=== PATIENT | female | born 1945 | race African-American/Black ===

== ENCOUNTER 2017-01-28 18:46 | Inpatient (IN) | payer OTHER ==
[2017-01-28 19:16] VITALS: BMI 25.0
[2017-01-28 19:38] LABS: BASOPHIL 0.6 % (0-2.0); EOSINOPHIL 1.2 % (0-4.5); MCH 29.5 pg (25.7-33.7); MEAN CELL VOLUME 89.4 fl (80-96); MEAN PLT VOLUME 7.2 fl (7.5-11.1); NEUTROPHILS 66.6 % (42.8-82.8); PLATELET COUNT 350 K/MM3 (134-434); RDW 13.5 % (11.6-15.6); WHITE BLOOD COUNT 7.3 K/mm3 (4.0-10.0)
[2017-01-28 19:59] LABS: ALBUMIN 3.4 g/dl (3.4-5.0); ANION GAP 10 (8-16); BILIRUBIN,TOTAL 0.3 mg/dL (0.2-1.0); CALCIUM 9.1 mg/dL (8.5-10.1); CO2 25 mmol/L (21-32); CREATININE 1.6 mg/dL (0.55-1.02); GLUCOSE,RANDOM 87 mg/dL (74-106); SGOT/AST 14 U/L (15-37); SGPT/ALT 20 U/L (12-78); TOT PROT 6.4 g/dl (6.4-8.2)
[2017-01-28 20:01] LABS: ALK PHOS 69 U/L (45-117); TROPONIN I 0.44 ng/ml (0.00-0.05)
[2017-01-28] MEDS ORDERED: HEPARIN NA (PORCINE) 5,000 UNITS/ML 1ML VIAL IVPUSH PRN ×2 (20:48)
[2017-01-28] MEDS ORDERED: HEPARIN NA (PORCINE) 5,000 UNITS/ML 1ML VIAL IVPUSH ONE (20:50)
[2017-01-28] MEDS ORDERED: CLOPIDOGREL BISULFATE 300 MG TABLET PO ONE (20:51)
[2017-01-28] MEDS ORDERED: ASPIRIN 81 MG CHEWABLE TABLETS PO ONE (20:51)
[2017-01-28] MEDS ORDERED: HEPARIN NA (PORCINE) 5,000 UNITS/ML 1ML VIAL ONE (20:54)
[2017-01-28] MEDS ORDERED: CLOPIDOGREL BISULFATE 300 MG TABLET ONE (20:54)
[2017-01-28] MEDS ORDERED: HEPARIN INFUSION - 500 ML IVPB ONE (20:54)
[2017-01-28] MEDS ORDERED: ASPIRIN 81 MG CHEWABLE TABLETS ONE (20:54)
[2017-01-28] MEDS: HEPARIN INFUSION - 500 ML IVPB SCH (20:55)
[2017-01-28 21:26] LABS: INR 1.18 (0.82-1.09)
--- NOTE | 2017-01-28 23:29 | PDOC ---
History of Present Illness - General Chief Complaint: Lightheaded Stated Complaint: CHEST TIGHTNESS/DIZZINESS Time Seen by Provider: 01/28/17 19:38 History Source: Patient Exam Limitations: No Limitations - History of Present Illness Initial Comments: 01/28/17 23:10 Patient is a 71 year old female with h/o HLD, htn, DM type II, CAD, dementia, Vit B12, SOB, major depressive disorder, CAGB, RBKA, who lives in [facility] for c/o chest pain. Patient is a poor historian due to dementia, but c/o chest pain, which she thinks she has had since last night. States the pain is like a intermittent pressure 8/10 which makes her sob when the pain come. States she had some dizziness with the symptoms states " it does not let me hold my head up". Today she used her MDI and was feeling better. She was in the hospital about 2 weeks ago. She thinks is was [place] but she is not sure. Denies any bleeding GI, brain or ENT. Per EMS got a call for unconscious but on arrival patient was conscious with a finger stick of 60 and was given dextrose with improvement in metal status. PMD: Dr. Kaylyn Peña PMHX: as above ALL: NKDA GENERAL/CONSTITUTIONAL: [No fever or chills. No weakness. No weight change.] HEAD, EYES, EARS, NOSE AND THROAT: [No change in vision. No ear pain or discharge. No sore throat.] CARDIOVASCULAR: (+) chest pain (+) shortness of breath.] RESPIRATORY: [No cough, wheezing, or hemoptysis.] GASTROINTESTINAL: [No nausea, vomiting, diarrhea or constipation. No rectal bleeding.] GENITOURINARY: [No dysuria, frequency, or change in urination.] MUSCULOSKELETAL: [No joint or muscle swelling or pain. No neck or back pain.] SKIN AND BREASTS: [No rash or easy bruising.] NEUROLOGIC: [No headache, vertigo, loss of consciousness, or loss of sensation, (+) dementia] PSYCHIATRIC: (+) depression or anxiety.] ENDOCRINE: [No increased thirst. No abnormal weight change.] HEMATOLOGIC/LYMPHATIC: [No anemia, easy bleeding, or history of blood clots.] ALLERGIC/IMMUNOLOGIC: [No hives or skin allergy. No latex allergy.] GENERAL: [The patient is awake, alert, and fully oriented, in no acute distress. ] HEAD: [Normal with no signs of trauma.] EYES: [right Pupil round and reactive to light, extraocular movements intact, sclera anicteric, conjunctiva clear, opacification left eye.] ENT: [Ears normal, nares patent, oropharynx clear without exudates. Moist mucous membranes.] NECK: [Normal range of motion, supple without lymphadenopathy, JVD, or masses.] LUNGS: [Breath sounds equal, clear to auscultation bilaterally. No wheezes, and no crackles.] HEART: [Regular rate and rhythm, normal S1 and S2 without murmur, rub, nontender chest wall .] ABDOMEN: [Soft, nontender, normoactive bowel sounds. No guarding, no rebound. No masses.] RECTAL: good tone, small hemorroid, brown stool EXTREMITIES: decreased ROM, RBKA, no edema to left leg. No clubbing or cyanosis. No cords, erythema, or tenderness.] NEUROLOGICAL: [Cranial nerves II through XII grossly intact. blind left eye, Normal speech, gait not tested] PSYCH: [Normal mood, normal affect.] SKIN: [Warm, Dry, normal turgor, no rashes or lesions noted.] Past History - Past Medical History Allergies/Adverse Reactions: Allergies Allergy/AdvReac Type Severity Reaction Status Date / Time No Known Allergies Allergy Verified 01/28/17 19:09 Home Medications: Ambulatory Orders Albuterol Sulfate Inhaler - [Ventolin Hfa Inhaler -] 2 inh PO Q4H 01/28/17 Aspirin [ASA -] 81 mg PO DAILY 01/28/17 Atorvastatin Ca [Lipitor] 20 mg PO HS 01/28/17 Clopidogrel Bisulfate [Plavix -] 75 mg PO DAILY 01/28/17 Digoxin [Lanoxin -] 0.25 mg PO DAILY 01/28/17 Donepezil HCl [Aricept -] 10 mg PO HS 01/28/17 Gabapentin [Neurontin -] 300 mg PO Q8H 01/28/17 Glipizide [Glipizide ER] 10 mg PO DAILY 01/28/17 Insulin Lispro [Humalog] 0 unit SQ TID 01/28/17 Metformin HCl [Metformin HCl ER] 1,000 mg PO DAILY 01/28/17 Metoprolol Tartrate [Lopressor -] 12.5 mg PO DAILY 01/28/17 Pantoprazole Sodium [Protonix] 20 mg PO DAILY 01/28/17 Tiotropium [place] [Spiriva] 1 inh PO DAILY 01/28/17 Trazodone HCl [Desyrel -] 150 mg PO HS 01/28/17 Zolpidem Tartrate [Ambien] 5 mg PO HS 01/28/17 Cardiac Disorders: Yes (cad) COPD: Yes Dementia: Yes Diabetes: Yes (iddm) Disorders: Yes (gerd) Hypercholesterolemia: Yes Psychiatric Problems: Yes (anxeity) - Surgical History Cardiac Surgery: Yes (cabg) - Psycho/Social/Smoking Cessation Hx Anxiety: No Suicidal Ideation: No Smoking History: Never smoked Have you smoked in the past 12 months: No Information on smoking cessation initiated: No Hx Alcohol Use: No Drug/Substance Use Hx: No Substance Use Type: None *Physical Exam - Vital Signs Last Vital Signs Temp Pulse Resp BP Pulse Ox 98.0 F 78 18 144/77 100 01/28/17 20:25 01/28/17 20:25 01/28/17 20:25 01/28/17 20:25 01/28/17 20:25 ED Treatment Course - LABORATORY CBC & Chemistry Diagram: 01/28/17 19:28 01/28/17 19:28 - ADDITIONAL ORDERS Additional order review: Laboratory Results 01/28/17 01/28/17 01/28/17 21:20 19:28 19:28 INR 1.18 H Sodium 140 Potassium 4.3 Chloride 105 Carbon Dioxide 25 Anion Gap 10 BUN 20 H Creatinine 1.6 H Creat Clearance w eGFR 31.87 Random Glucose 87 Calcium 9.1 Total Bilirubin 0.3 AST 14 L ALT 20 Alkaline Phosphatase 69 Creatine Kinase 96 Troponin I 0.44 H Total Protein 6.4 Albumin 3.4 Stool Occult Blood Negative 01/28/17 19:28 RBC 2.85 L MCV 89.4 MCHC 33.0 RDW 13.5 MPV 7.2 L Neutrophils % 66.6 Lymphocytes % 23.8 Monocytes % 7.8 Eosinophils % 1.2 Basophils % 0.6 - RADIOLOGY Radiology Studies Ordered: Category Date Time Status CHEST X-RAY PORTABLE* [RAD] Stat Radiology 01/28/17 20:40 Taken - Medications Given in the ED: ED Medications Discontinued Medications Generic Name Dose Route Start Last Admin Trade Name Evangelista PRN Reason Stop Dose Admin Aspirin 162 mg 01/28/17 20:51 01/28/17 20:54 Asa - PO 01/28/17 20:52 162 mg ONCE ONE Administration Clopidogrel Bisulfate 300 mg 01/28/17 20:51 01/28/17 20:54 Plavix - PO 01/28/17 20:52 300 mg ONCE ONE Administration Heparin Sodium (Porcine) 5,000 unit 01/28/17 20:50 01/28/17 20:55 Heparin - IVPUSH 01/28/17 20:51 5,000 unit ONCE ONE Administration Medical Decision Making - Medical Decision Making 01/28/17 23:29 Patient is a 71 year old female with h/o HLD, htn, DM type II, CAD, dementia, Vit B12, SOB, major depressive disorder, CAGB, RBKA, who lives in [facility] for c/o chest pain. Patient has not been in this facility prior will do work up r/o acs labs, cxr, Patient found to be a bs of 60 by ems given dextrose. labs reviewed noted to have elevated trop will admit #1 EKG SR rate 55, LAD, mild ST elevation V1-V3, T wave inversion V5, V6 #2 repeat EKG SR rate 49, LAD, mild ST elevation V1-V3, T wave inversion V5, V6n unchanged from prior, cxr sternotomy wires and clips, no acute infiltrate Patient given Plavix, asa and started on Heparin D/W Dr. Rodriguez and will admit *DC/Admit/Observation/Transfer Diagnosis at time of Disposition: NSTEMI (non-ST elevated myocardial infarction) - Discharge Dispostion Admit: Yes Decision to Admit order Date/Time: Decision to Admit Order Category Date Time Status Decision to Admit to Hospital Routine Admission 01/28/17 23:37 Active - Referrals Referrals: Kaylyn Peña MD [Primary Care Provider] -
--- NOTE | 2017-01-29 00:15 | HP ---
CHIEF COMPLAINT: chest pain/ dizziness. PCP:Dr. Kaylyn Peña HISTORY OF PRESENT ILLNESS: Patient is a 71 year AA old female with h/O HLD, hTN, DM type II, CAD, dementia , Vit B12 deficiency, major depressive disorder, S/P CAGB, RBKA(right below knee amputation), lives in [facility] ,who presented to the Ed due to fainting and mid sternal chest pain, 7/10 radiating to her left shoulder, the pain is associated with sweating, palpitation,SOB,and lightheadedness for the last 2 weeks. She denies any cough, she used 2 pillows to sleep, and she becomes short of breath after walking 2 blocks, she cannot climb stairs due to RBKA amputation.She denies any headache, blurry vision, N/V/D but she has been constipated for the last 3 days.She also reports urinary urgency and frequency but she denies any burning sensation. she was in [facility] last week but she is not sure. her blood glucose when she got to ED was 60 and was given dextrose. patient is poor historian due to dementia. ER course was notable for: (1)1 EKG SR rate 55, LAD, mild ST elevation V1-V3, T wave inversion V5, V6 (2)Trop were elevated 0.44 (3)Patient given Plavix, asa and started on Heparin Recent Travel:NO PAST MEDICAL HISTORY: HLD, hTN, DM type II, CAD, dementia, Vit B12 deficiency, major depressive disorder, CAGB, RBKA. PAST SURGICAL HISTORY: CAGB twice in 2003 and 2008 per patient , RBKA after a trauma. Social History: Smoking:None Alcohol:None Drugs: None Family History:Significant for HTN, DM and heart diseases. Allergies No Known Allergies Allergy (Verified 01/28/17 19:09) HOME MEDICATIONS: Home Medications Medication Instructions Recorded Albuterol Sulfate Inhaler - 2 inh PO Q4H 01/28/17 [Ventolin Hfa Inhaler -] Aspirin [ASA -] 81 mg PO DAILY 01/28/17 Atorvastatin Ca [Lipitor] 20 mg PO HS 01/28/17 Clopidogrel Bisulfate [Plavix -] 75 mg PO DAILY 01/28/17 Digoxin [Lanoxin -] 0.25 mg PO DAILY 01/28/17 Donepezil HCl [Aricept -] 10 mg PO HS 01/28/17 Gabapentin [Neurontin -] 300 mg PO Q8H 01/28/17 Glipizide [Glipizide ER] 10 mg PO DAILY 01/28/17 Insulin Lispro [Humalog] 0 unit SQ TID 01/28/17 Metformin HCl [Metformin HCl ER] 1,000 mg PO DAILY 01/28/17 Metoprolol Tartrate [Lopressor -] 12.5 mg PO DAILY 01/28/17 Pantoprazole Sodium [Protonix] 20 mg PO DAILY 01/28/17 Tiotropium [place] [Spiriva] 1 inh PO DAILY 01/28/17 Trazodone HCl [Desyrel -] 150 mg PO HS 01/28/17 Zolpidem Tartrate [Ambien] 5 mg PO HS 01/28/17 REVIEW OF SYSTEMS CONSTITUTIONAL: No fever, chills, +diaphoresis, laying down sleepy in her bed. HEENT: Absent: no rhinorrhea, nasal congestion, throat pain, throat swelling, difficulty swallowing, mouth swelling, ear pain, eye pain, visual changes CARDIOVASCULAR: +chest pain 8/10,+ Fainting, +palpitations, , lightheadedness,NO peripheral edema RESPIRATORY: NO cough,+ shortness of breath, +dyspnea with exertion, NO orthopnea, wheezing, stridor or hemoptysis GASTROINTESTINAL: NO abdominal pain, abdominal distension, nausea, vomiting, diarrhea, + constipation, NO melenaor hematochezia. GENITOURINARY: NO dysuria, frequency, urgency, hesitancy, hematuria, flank pain, genital pain MUSCULOSKELETAL: NO myalgia, arthralgia, joint swelling, back pain, neck pain SKIN: Absent: rash, itching, pallor HEMATOLOGIC/IMMUNOLOGIC: Absent: easy bleeding, easy bruising, lymphadenopathy, frequent infections ENDOCRINE: Absent: unexplained weight gain, unexplained weight loss, heat intolerance, cold intolerance NEUROLOGIC: NO headache, focal weakness or paresthesias, +dizziness, RBKA , NO seizure, Confused Oriented x2, NO bladder or bowel incontinence PSYCHIATRIC: + depression, NO suicidal or homicidal ideation, NO hallucinations. PHYSICAL EXAMINATION Vital Signs - 24 hr 01/28/17 01/28/17 01/28/17 19:09 19:10 20:25 Temperature 99.1 F 98.0 F Pulse Rate 57 L Pulse Rate [ 78 Apical] Respiratory 18 18 Rate Blood Pressure 152/71 Blood Pressure 144/77 [Right Arm] O2 Sat by Pulse 96 100 100 Oximetry (%) GENERAL: Sleepy, oriented x2, in no acute distress. HEAD: Normal with no signs of trauma. EYES: Pupils equal, round and reactive to light, extraocular movements intact, sclera anicteric, conjunctiva clear. No lid lag. EARS, NOSE, THROAT: Ears normal, nares patent, oropharynx clear without exudates. Moist mucous membranes. NECK: Normal range of motion, supple without lymphadenopathy, JVD, or masses. LUNGS: Breath sounds equal, clear to auscultation bilaterally. No wheezes, and no crackles. No accessory muscle use. HEART: Regular rate and rhythm, normal S1 and S2 without murmur, rub or gallop. ABDOMEN: Soft, nontender, not distended, normoactive bowel sounds, no guarding, no rebound, no masses. No hepatomegaly or splenomegaly. MUSCULOSKELETAL: Normal range of motion at all joints with RBKA. No bony deformities or tenderness. No CVA tenderness. UPPER EXTREMITIES: 2+ pulses, warm, well-perfused. No cyanosis. No clubbing. No peripheral edema. LOWER EXTREMITIES: 2+ pulses, warm, well-perfused. No calf tenderness. No peripheral edema. NEUROLOGICAL: Cranial nerves II-XII intact. Normal speech. PSYCHIATRIC: Cooperative. poor eye contact. depressed mood and affect. SKIN: Warm, dry, normal turgor, no rashes or lesions noted, normal capillary refill. CBC, BMP 01/28/17 19:28 01/28/17 19:28 Hepatic Panel Total Bilirubin 0.3 mg/dL (0.2-1.0) 01/28/17 19:28 AST 14 U/L (15-37) L 01/28/17 19:28 ALT 20 U/L (12-78) 01/28/17 19:28 Alkaline Phosphatase 69 U/L (45-117) 01/28/17 19:28 Albumin 3.4 g/dl (3.4-5.0) 01/28/17 19:28 Troponin, BNP 01/28/17 19:28 Troponin I 0.44 H ASSESSMENT/PLAN: Patient is a 71 year AA old female with h/O HLD, hTN, DM type II, CAD, dementia , Vit B12 deficiency, major depressive disorder,S/p CAGB, RBKA(right below knee amputation), who lives in [facility] ,who presented to the Ed due to fainting and med sternal chest pain, 7/10 radiating to her left shoulder. patient was found to have NSTEMI wit heart score of 6 and antonella score of 4. NSTEMI, S/P CAG * Heart score of 6 * ANTONELLA score of 4 * Troponin I= 0.44. * Trend troponin Q6H with EKG * EKG shows T wave abnormalities * O2, 2 L NC * Heprin drip initiated * ASA loading dose followed with 81 mg daily * clopidogrel 300 mg was given in ED, will continue 75 mg daily * Morphine IV 1 mg for pain * Atorvastatin 80 mg in ED, will continue 80 mg daily. * PT/Aptt * Type and screen * will repeat CBC, BMP in the morning. * Cardiology consultation. * Cardiac ECHO. * Cardiac monitoring * Vitals Q4H * NPO Bradycardia : most likely 2/2 medication * cardiac monitoring. * Vitals Q 4 H * Hold BB if HR < 60 or symptomatic. * TSH orderd YUN on possible CKD * BUN/Cr 20/1.6 * repeat CMP * hold nephrotoxic meds * had some congestion on CXR , will hold on fluids for now. * F/U with [facility] to get her base line. * UA was placed Possible Systolic CHF * Cardiac ECHO was ordered * continue home meds( Digoxine 0.25 mg po daily, Lopressor 12.5 mg PO daily( will hold for HR below 60) * cardiac monitoring Normocytic anemia likely 2/2 chronic disease * H/H: 8.4/25.5 , MCV:89.4 * Iron studies was ordered.B12, Folic acid. * IDDMII/hypoglycemia * Finger stick was 60 on admission * Hold oral agents * BGM * ISS * A1C ordered * Hypoglycemia resolved HTN * Continue home medication ( Lctulguez66.5 mg PO daily) HLD * Continue Atorvastatin 80mg daily * Lipid panel was ordered COPD * Continue home medication Tudorza * Continue 02 2L NC * CXR show some congestion Major Depressive Disorder/Dementia * Continue Home medication aricept 10 mg PO HS * Continue home medication Trazodone 150 mg PO HS Prophylaxis * Continue Heparin drip for DVT (high risk) Disposition * Full code * Admit to telemetry. * Cardiac consult placed Visit type - Emergency Visit Emergency Visit: Yes ED Registration Date: 01/28/17 Care time: The patient presented to the Emergency Department on the above date and was hospitalized for further evaluation of their emergent condition. - New Patient This patient is new to me today: Yes Date on this admission: 01/30/17 - Critical Care Critical Care patient: No
--- NOTE | 2017-01-29 00:23 | PN ---
Teaching Attending Note Name of Resident: Isaura Velez ATTENDING PHYSICIAN STATEMENT I saw and evaluated the patient. I reviewed the resident's note and discussed the case with the resident. I agree with the resident's findings and plan as documented. SUBJECTIVE: 71 yo F with pmhx of HTN, HLD, DM IIm CAD S/P CABG, Dementia, b12 defeciency, MDD who is from [facility], who presents with chest pain. Notes chest pain since last night with associated sob due to pain. Pain level 8/ 10 in severity. As per ED noted when EMS called pt. was unconciouss?, but was concious on arrival with FS of 60 and Dextrose was administered. Pt. states she currently does not have chest pain, or pressure. OBJECTIVE: Physical: VS: Vital Signs Period Temp Pulse Resp BP Sys/Hobson Pulse Ox Last 24 Hr 98.0 F-99.1 F 57-78 18-18 144-152/71-77 96-100 GEN: NAD, able to speak full sentences HEENT: NCAT, PERRL CARD: RRR S1, S2 RESP: Decreased Breath sounds at bases ABD: BS X4, NTD to palpation EXT: R. BKA, LLE- Trace pitting edema CBCD WBC 7.3 K/mm3 (4.0-10.0) 01/28/17 19:28 RBC 2.85 M/mm3 (3.60-5.2) L 01/28/17 19:28 Hgb 8.4 GM/dL (10.7-15.3) L 01/28/17 19:28 Hct 25.5 % (32.4-45.2) L 01/28/17 19:28 MCV 89.4 fl (80-96) 01/28/17 19:28 MCHC 33.0 g/dl (32.0-36.0) 01/28/17 19:28 RDW 13.5 % (11.6-15.6) 01/28/17 19:28 Plt Count 350 K/MM3 (134-434) 01/28/17 19:28 MPV 7.2 fl (7.5-11.1) L 01/28/17 19:28 CMP Sodium 140 mmol/L (136-145) 01/28/17 19:28 Potassium 4.3 mmol/L (3.5-5.1) 01/28/17 19:28 Chloride 105 mmol/L (98-107) 01/28/17 19:28 Carbon Dioxide 25 mmol/L (21-32) 01/28/17 19:28 Anion Gap 10 (8-16) 01/28/17 19:28 BUN 20 mg/dL (7-18) H 01/28/17 19:28 Creatinine 1.6 mg/dL (0.55-1.02) H 01/28/17 19:28 Creat Clearance w eGFR 31.87 (>60) 01/28/17 19:28 Random Glucose 87 mg/dL (74-106) 01/28/17 19:28 Calcium 9.1 mg/dL (8.5-10.1) 01/28/17 19:28 Total Bilirubin 0.3 mg/dL (0.2-1.0) 01/28/17 19:28 AST 14 U/L (15-37) L 01/28/17 19:28 ALT 20 U/L (12-78) 01/28/17 19:28 Alkaline Phosphatase 69 U/L (45-117) 01/28/17 19:28 Total Protein 6.4 g/dl (6.4-8.2) 01/28/17 19:28 Albumin 3.4 g/dl (3.4-5.0) 01/28/17 19:28 CARDIAC ENZYMES Creatine Kinase 96 IU/L (26-192) 01/28/17 19:28 Troponin I 0.44 ng/ml (0.00-0.05) H 01/28/17 19:28 CXR- ? mild congestion EKG: NSR, TWI lateral leads ASSESSMENT AND PLAN: 71 yo F with pmhx of HLD, HTN, DM II, CAD s/p CABG, Dementia, b12 defeciency, MDD, Right BKA who presents with chest pain found to have a NSTEMI 1.) NSTEMI - Hep gtt. plavix, asa, 02 NC, Morphine - BB (?CHF, Stanley)- would hold - Heart 6 - NPO - EKG/Troponin Trend - Echo Complete - Cardiology consult - Lipid/A1c 2.) Shortness of breath/ acute chf? (unknown hx of) - Lasix - Echo complete 3.) CAD S/P CABG - C/W home meds 4.) DM II/Hypoglycemia - Hold Glipizide - Hold PO meds - Hypoglycemia resolved - FS - RAISS 5.) HTN - C/W home meds 6.) Normocytic Anemia - Chk Fe studies. B12, folate 7.) Brenden?/CKD - Avoid Nephrotoxic drugs - UA, U lytes 8.) Dvt Ppx - Mod risk- On Hep. gtt Rest as per resident note Place in Med- Tele
--- NOTE | 2017-01-29 00:29 | HP ---
HISTORY OF PRESENT ILLNESS: Unable to obtain full history from patient due to medical condition of dementia. Most information obtained from records and ED staff. Patient is a 68 year old female with a PMHx of HTN, HLD, IDDMII, CAD s/p CABG, COPD, Major depressive disorder, dementia who was BIBA from [facility] for complains of left sided chest pain associated with shortness of breath and dizziness. When EMS was called by the assisted living they were told patient was unconscious, however, upon arrival patient was found to have a finger stick of 60 and dextrose was given with improvement of mental status. Otherwise, patient denies nausea, vomiting, abdominal pain, dysuria. HOME MEDICATIONS: Home Medications Medication Instructions Recorded Albuterol Sulfate Inhaler - 2 inh PO Q4H 01/28/17 [Ventolin Hfa Inhaler -] Aspirin [ASA -] 81 mg PO DAILY 01/28/17 Atorvastatin Ca [Lipitor] 20 mg PO HS 01/28/17 Clopidogrel Bisulfate [Plavix -] 75 mg PO DAILY 01/28/17 Digoxin [Lanoxin -] 0.25 mg PO DAILY 01/28/17 Donepezil HCl [Aricept -] 10 mg PO HS 01/28/17 Gabapentin [Neurontin -] 300 mg PO Q8H 01/28/17 Glipizide [Glipizide ER] 10 mg PO DAILY 01/28/17 Insulin Lispro [Humalog] 0 unit SQ TID 01/28/17 Metformin HCl [Metformin HCl ER] 1,000 mg PO DAILY 01/28/17 Metoprolol Tartrate [Lopressor -] 12.5 mg PO DAILY 01/28/17 Pantoprazole Sodium [Protonix] 20 mg PO DAILY 01/28/17 Tiotropium [place] [Spiriva] 1 inh PO DAILY 01/28/17 Trazodone HCl [Desyrel -] 150 mg PO HS 01/28/17 Zolpidem Tartrate [Ambien] 5 mg PO HS 01/28/17 Vital Signs - 24 hr 01/28/17 01/28/17 01/28/17 19:09 19:10 20:25 Temperature 99.1 F 98.0 F Pulse Rate 57 L Pulse Rate [ 78 Apical] Respiratory 18 18 Rate Blood Pressure 152/71 Blood Pressure 144/77 [Right Arm] O2 Sat by Pulse 96 100 100 Oximetry (%) PHYSICAL EXAMINATION GENERAL: Awake, alert, able to speak in full sentences and in no acute distress EYES: Sclera anicteric, conjunctiva clear. EARS, NOSE, THROAT: Oropharynx clear without exudates. Moist mucous membranes. NECK: Normal range of motion, supple without lymphadenopathy, JVD, or masses. LUNGS: Decreased breath sounds with no wheezes, and no crackles. No accessory muscle use. HEART: Regular rate and rhythm, normal S1 and S2 without murmur, rub or gallop. ABDOMEN: Soft, nontender, not distended, normoactive bowel sounds, no guarding, no rebound, no masses. LOWER EXTREMITIES: Trace pitting edema in left lower extremity. Below the knee amputation of right lower extremity Abnormal Lab Results 01/28/17 01/28/17 01/28/17 19:28 19:28 19:28 RBC 2.85 L Hgb 8.4 L Hct 25.5 L MPV 7.2 L INR 1.18 H BUN 20 H Creatinine 1.6 H AST 14 L Troponin I 0.44 H ASSESSMENT/PLAN: Patient is a 71 year old female with a PMHx of HTN, HLD, IDDMII, CAD s/p CABG, CHF, COPD, Major depressive disorder, dementia who was BIBA from [facility] living for complaints of chest pain associated with shortness of breath that progressively worsened in the last couple of days. Patient was found to have a slightly elevated troponin and abnormal EKG. Patient admitted to telemetry for further monitoring and management. NSTEMI -HEART SCORE: 6 -ANTONELLA SCORE: 4 -Troponin elevated t 0.44. Repeat pending -T-wave abnormalities on EKG. No baseline EKG. -Trend Troponins Q6H with EKG -Heparin drip initiated -ASA loading dose given. Will continue ASA 81mg daily -Plavix 300mg given in ED. Will continue 75mg daily -Atorvastatin 80mg given in ED. Will continue 80mg daily -Continue Lopressor home dosage 12.5mg daily but hold if heart rate <60 and SBP <100 -Morphine 1mg IVP for pain -Type and screen, coagulations -ECHO, Lipid profile, A1C ordered -Cardiology consult placed -Cardiac monitoring Bradycardia- Unknown baseline -Possibly due to medications -Hold Lopressor if HR <60 -TSH ordered -Cardiac monitoring -Vitals Q4H YUN on Possible CKD -Unknown baseline -Will hold nephrotoxic medications -Chest X-ray shows some congestion, will hold off on fluids -Day medical team to follow up on patients baseline labs -Continue to monitor BMP daily Possible Systolic CHF? -Chest X-ray revealed mild congestion -Continue home medication Digoxin lopressor -ECHO ordered Normocytic Anemia -Hgb 8.4, Hct 25 -Iron studies ordered IDDMII -Hold oral agents -BGM -ISS -A1C ordered HTN -Continue home medication Lopressor HLD -Continue Atorvastatin 80mg daily -Lipid panel ordered COPD -Continue home medication Tudorza -Continue 02 2L NC Major Depressive Disorder/Dementia -Continue Home medication Aricept -Continue home medication Trazodone Prophylaxis -Continue Heparin drip for DVT Disposition -Full code -Admit to telemetry. Cardiac consult placed Case discussed with medical team and attending full H&P to follow Visit type - Emergency Visit Emergency Visit: Yes ED Registration Date: 01/28/17 Care time: The patient presented to the Emergency Department on the above date and was hospitalized for further evaluation of their emergent condition. - New Patient This patient is new to me today: Yes Date on this admission: 01/29/17 - Critical Care Critical Care patient: Yes Total Critical Care Time (in minutes): 45 Critical Care Statement: The care of this patient involved high complexity decision making to prevent further life threatening deterioration of the patient 's condition and/or to evalute & treat vital organ system(s) failure or risk of failure.
[2017-01-29] MEDS ORDERED: ALBUTEROL SO4 2.5/IPRATROPIUM 0.5 INH SOL 3 ML VIAL.NEB. NEB PRN (01:24)
[2017-01-29] MEDS ORDERED: HEPARIN NA (PORCINE) 5,000 UNITS/ML 1ML VIAL IVPUSH PRN ×2 (01:30)
[2017-01-29] MEDS: morphine CARPU-JECT 2 MG/1 ML DISP.SYRIN IVPUSH PRN ×2 (02:56→11:46)
[2017-01-29] MEDS: INSULIN SLIDING SCALE (NOVOLOG) 1 VIAL SQ SCH ×6 (03:17→21:36)
[2017-01-29] MEDS ORDERED: FUROSEMIDE 40 MG/4 ML INJECTABLE VIAL IVPUSH ONE (04:45)
[2017-01-29] MEDS: GABAPENTIN 300 MG CAPSULE (FP) PO SCH ×3 (05:27→21:29)
[2017-01-29] MEDS ORDERED: INSULIN SLIDING SCALE (NOVOLOG) 1 VIAL SQ SCH (07:00)
[2017-01-29 07:31] LABS: MCH 30.1 pg (25.7-33.7); MCHC 33.5 g/dl (32.0-36.0); MEAN CELL VOLUME 89.7 fl (80-96); MEAN PLT VOLUME 7.2 fl (7.5-11.1); PLATELET COUNT 382 K/MM3 (134-434); RDW 13.5 % (11.6-15.6); WHITE BLOOD COUNT 8.7 K/mm3 (4.0-10.0)
[2017-01-29 08:20] LABS: ANION GAP 11 (8-16); CALCIUM 9.4 mg/dL (8.5-10.1); CHOLESTEROL 130 mg/dL (50-200); CO2 26 mmol/L (21-32); CREATININE 1.5 mg/dL (0.55-1.02); GLUCOSE,RANDOM 92 mg/dL (74-106); LDL CHOLESTEROL (ONLY SJRH) 66 mg/dL (5-100); THYROID STIMULATING HORMONE 1.28 uIU/ml (0.358-3.74)
[2017-01-29 08:32] LABS: INR 1.12 (0.82-1.09); PROTHROMBIN TIME (PATIENT) 12.4 SEC (9.98-11.88)
[2017-01-29 08:34] LABS: ACTIVATED PTT 58.1 SECONDS (26.9-34.4)
[2017-01-29] MEDS: ACLIDINIUM BROMIDE 400 MCG/INH AERO.POWD IH SCH ×2 (09:49→21:37)
[2017-01-29] MEDS: CLOPIDOGREL BISULFATE 75 MG TABLET (FP) PO SCH (09:50)
[2017-01-29] MEDS: METOPROLOL TARTRATE 25 MG TABLET (FP) PO SCH (09:50)
--- NOTE | 2017-01-29 09:58 | PN ---
Progress Note, Physician Chief Complaint: cp History of Present Illness: Patient is a 71 year old female with h/o HLD, htn, DM type II, CAD, dementia, Vit B12, SOB, major depressive disorder, CAGB, RBKA, who lives in The [facility] for c/o chest pain. Patient is a poor historian due to dementia, but c/o chest pain, which she thinks she has had since last night. States the pain is like a intermittent pressure 8/10 which makes her sob when the pain come. States she had some dizziness with the symptoms states " it does not let me hold my head up". Today she used her MDI and was feeling better. She was in the hospital about 2 weeks ago. She thinks is was [place] but she is not sure. Denies any bleeding GI, brain or ENT. Per EMS got a call for unconscious but on arrival patient was conscious with a finger stick of 60 and was given dextrose with improvement in metal status. - Current Medication List Current Medications: Active Medications Aclidinium [place] (Tudorza -) 1 puff IH BID [facility] Last Admin: 01/29/17 09:49 Dose: 1 puff Albuterol/Ipratropium (Duoneb -) 1 amp NEB Q6H PRN PRN Reason: SHORTNESS OF BREATH Atorvastatin Calcium (Lipitor -) 80 mg PO HS OG Clopidogrel Bisulfate (Plavix -) 75 mg PO DAILY [facility] Last Admin: 01/29/17 09:50 Dose: 75 mg Digoxin (Lanoxin -) 0.25 mg PO DAILY [facility] Last Admin: 01/29/17 09:49 Dose: 0.25 mg Donepezil HCl (Aricept -) 10 mg PO HS OG Gabapentin (Neurontin -) 300 mg PO TID [facility] Last Admin: 01/29/17 05:27 Dose: Not Given Heparin Sodium (Porcine) (Heparin -) 5,000 unit IVPUSH PRN PRN Heparin Sodium (Porcine) (Heparin -) 1,000 unit IVPUSH PRN PRN Heparin Sodium/Dextrose (Heparin Infusion -) 500 mls @ 16 mls/hr IVPB TITR OG ; 800 UNITS/HR PRN Reason: Protocol Last Titration: 01/29/17 03:14 Dose: 750 units/hr Insulin Aspart (Novolog Vial Sliding Scale -) 1 vial SQ Q4H OG PRN Reason: Protocol Last Admin: 01/29/17 09:52 Dose: Not Given Metoprolol Tartrate (Lopressor -) 12.5 mg PO DAILY [facility] Last Admin: 01/29/17 09:50 Dose: 12.5 mg Morphine Sulfate (Morphine Injection -) 1 mg IVPUSH Q4H PRN PRN Reason: PAIN Last Admin: 01/29/17 02:56 Dose: 1 mg Senna (Senna -) 2 tab PO HS [facility] Trazodone HCl (Desyrel -) 150 mg PO HS [facility] - Objective Vital Signs: Vital Signs Temperature 97.7 F 01/29/17 07:32 Pulse Rate 59 L 01/29/17 09:49 Respiratory Rate 20 01/29/17 07:35 Blood Pressure 163/78 01/29/17 07:32 O2 Sat by Pulse Oximetry (%) 100 01/29/17 07:35 Eyes: Yes: WNL, Conjunctiva Clear, EOM Intact HENT: Yes: WNL, Atraumatic, Normocephalic Neck: Yes: WNL, Supple, Trachea Midline Cardiovascular: Yes: WNL, Regular Rate and Rhythm Respiratory: Yes: WNL, Regular, CTA Bilaterally Gastrointestinal: Yes: WNL, Normal Bowel Sounds Genitourinary: Yes: WNL Musculoskeletal: Yes: WNL Extremities: Yes: WNL Edema: No Integumentary: Yes: WNL Neurological: Yes: WNL, Alert, Oriented ...Motor Strength: WNL Psychiatric: Yes: WNL Labs: CBC, BMP 01/29/17 05:35 01/29/17 05:35 INR, PTT INR 1.12 (0.82-1.09) 01/29/17 05:35 Laboratory Tests 01/28/17 01/28/17 01/28/17 19:28 19:28 19:28 WBC 7.3 RBC 2.85 L Hgb 8.4 L Hct 25.5 L MCV 89.4 MCH 29.5 MCHC 33.0 RDW 13.5 Plt Count 350 MPV 7.2 L Neutrophils % 66.6 Lymphocytes % 23.8 Monocytes % 7.8 Eosinophils % 1.2 Basophils % 0.6 Retic Count INR 1.18 H PTT (Actin FS) Sodium 140 Potassium 4.3 Chloride 105 Carbon Dioxide 25 Anion Gap 10 BUN 20 H Creatinine 1.6 H Creat Clearance w eGFR 31.87 POC Glucometer Random Glucose 87 Hemoglobin A1c % Calcium 9.1 Ferritin Total Bilirubin 0.3 AST 14 L ALT 20 Alkaline Phosphatase 69 Creatine Kinase 96 Troponin I 0.44 H B-Natriuretic Peptide Total Protein 6.4 Albumin 3.4 Triglycerides Cholesterol Total LDL Cholesterol HDL Cholesterol Vitamin B12 Serum Folate TSH Stool Occult Blood Blood Type Antibody Screen 01/28/17 01/29/17 01/29/17 21:20 01:30 01:30 WBC RBC Hgb Hct MCV MCH MCHC RDW Plt Count MPV Neutrophils % Lymphocytes % Monocytes % Eosinophils % Basophils % Retic Count INR PTT (Actin FS) 83.5 H Sodium Potassium Chloride Carbon Dioxide Anion Gap BUN Creatinine Creat Clearance w eGFR POC Glucometer Random Glucose Hemoglobin A1c % Calcium Ferritin Total Bilirubin AST ALT Alkaline Phosphatase Creatine Kinase Troponin I 0.45 H B-Natriuretic Peptide Total Protein Albumin Triglycerides Cholesterol Total LDL Cholesterol HDL Cholesterol Vitamin B12 Serum Folate TSH Stool Occult Blood Negative Blood Type Antibody Screen 01/29/17 01/29/17 01/29/17 01:30 01:30 05:35 WBC 8.7 RBC 3.36 L Hgb 10.1 L D Hct 30.1 L D MCV 89.7 MCH 30.1 MCHC 33.5 RDW 13.5 Plt Count 382 MPV 7.2 L Neutrophils % Lymphocytes % Monocytes % Eosinophils % Basophils % Retic Count INR PTT (Actin FS) Sodium Potassium Chloride Carbon Dioxide Anion Gap BUN Creatinine Creat Clearance w eGFR POC Glucometer Random Glucose 87 Hemoglobin A1c % Calcium Ferritin Total Bilirubin AST ALT Alkaline Phosphatase Creatine Kinase Troponin I B-Natriuretic Peptide 6028.26 H Total Protein Albumin Triglycerides Cholesterol Total LDL Cholesterol HDL Cholesterol Vitamin B12 Serum Folate TSH Stool Occult Blood Blood Type Antibody Screen 01/29/17 01/29/17 01/29/17 05:35 05:35 05:35 WBC RBC Hgb Hct MCV MCH MCHC RDW Plt Count MPV Neutrophils % Lymphocytes % Monocytes % Eosinophils % Basophils % Retic Count INR 1.12 PTT (Actin FS) 58.1 H D Sodium 142 Potassium 4.1 Chloride 105 Carbon Dioxide 26 Anion Gap 11 BUN 17 Creatinine 1.5 H Creat Clearance w eGFR POC Glucometer Random Glucose 92 Hemoglobin A1c % 7.2 H Calcium 9.4 Ferritin 99.140 Total Bilirubin AST ALT Alkaline Phosphatase Creatine Kinase Troponin I B-Natriuretic Peptide 6604.79 H Total Protein Albumin Triglycerides 127 Cholesterol 130 Total LDL Cholesterol 66 HDL Cholesterol 52 Vitamin B12 364 Serum Folate 5 TSH 1.28 Stool Occult Blood Blood Type Antibody Screen 01/29/17 01/29/17 01/29/17 05:35 05:35 05:35 WBC RBC Hgb Hct MCV MCH MCHC RDW Plt Count MPV Neutrophils % Lymphocytes % Monocytes % Eosinophils % Basophils % Retic Count 1.56 H INR PTT (Actin FS) Sodium Potassium Chloride Carbon Dioxide Anion Gap BUN Creatinine Creat Clearance w eGFR POC Glucometer Random Glucose Hemoglobin A1c % Calcium Ferritin Cancelled Total Bilirubin AST ALT Alkaline Phosphatase Creatine Kinase Troponin I B-Natriuretic Peptide Total Protein Albumin Triglycerides Cholesterol Total LDL Cholesterol HDL Cholesterol Vitamin B12 Cancelled Serum Folate TSH Stool Occult Blood Blood Type O POSITIVE Antibody Screen Negative 01/29/17 01/29/17 06:25 09:54 WBC RBC Hgb Hct MCV MCH MCHC RDW Plt Count MPV Neutrophils % Lymphocytes % Monocytes % Eosinophils % Basophils % Retic Count INR PTT (Actin FS) Sodium Potassium Chloride Carbon Dioxide Anion Gap BUN Creatinine Creat Clearance w eGFR POC Glucometer 182 134 Random Glucose Hemoglobin A1c % Calcium Ferritin Total Bilirubin AST ALT Alkaline Phosphatase Creatine Kinase Troponin I B-Natriuretic Peptide Total Protein Albumin Triglycerides Cholesterol Total LDL Cholesterol HDL Cholesterol Vitamin B12 Serum Folate TSH Stool Occult Blood Blood Type Antibody Screen
[2017-01-29] MEDS ORDERED: METOPROLOL TARTRATE 25 MG TABLET (FP) PO SCH (10:00)
[2017-01-29] MEDS ORDERED: DIGOXIN 0.125 MG TABLET (FP) PO SCH (10:00)
[2017-01-29] MEDS ORDERED: METOPROLOL SUCCINATE 25 MG TAB.SR.24H (FP) PO SCH (10:00)
--- NOTE | 2017-01-29 10:32 | EKG ---
Test Reason : Blood Pressure : / mmHG Vent. Rate : 049 BPM Atrial Rate : 049 BPM P-R Int : 160 ms QRS Dur : 122 ms QT Int : 452 ms P-R-T Axes : 048 -55 122 degrees QTc Int : 408 ms SINUS BRADYCARDIA LEFT AXIS DEVIATION NON-SPECIFIC INTRA-VENTRICULAR CONDUCTION DELAY ABNORMAL ECG WHEN COMPARED WITH ECG OF 28-JAN-2017 19:04, NONSPECIFIC T WAVE ABNORMALITY HAS REPLACED INVERTED T WAVES IN INFERIOR LEADS Confirmed by DANNA CESAR, TOY ([id number]) on 01/29/2017 10:32:16 AM Referred By: Confirmed By:TOY CLAY MD
--- NOTE | 2017-01-29 10:32 | EKG ---
Test Reason : Blood Pressure : / mmHG Vent. Rate : 055 BPM Atrial Rate : 055 BPM P-R Int : 156 ms QRS Dur : 122 ms QT Int : 424 ms P-R-T Axes : 052 -53 215 degrees QTc Int : 405 ms SINUS BRADYCARDIA LEFT AXIS DEVIATION NON-SPECIFIC INTRA-VENTRICULAR CONDUCTION DELAY ABNORMAL ECG NO PREVIOUS ECGS AVAILABLE Confirmed by TOY CLAY MD ([id number]) on 01/29/2017 10:32:29 AM Referred By: Confirmed By:TOY CLAY MD
--- NOTE | 2017-01-29 10:47 | CON.CARD ---
Consult Consult Specialty:: Cardiology Reason for Consultation:: chf cp - History of Present Illness History of Present Illness: Patient is a 71 year old female with h/o HLD, htn, DM type II, CAD, dementia, Vit B12, SOB, major depressive disorder, CAGB, RBKA, who lives in [facility] for c/o chest pain. Patient is a poor historian due to dementia, but c/o chest pain, which she thinks she has had since last night. States the pain is like a intermittent pressure 8/10 which makes her sob when the pain come. States she had some dizziness with the symptoms states " it does not let me hold my head up". Today she used her MDI and was feeling better. She was in the hospital about 2 weeks ago. She thinks is was [place] but she is not sure. Denies any bleeding GI, brain or ENT. Per EMS got a call for unconscious but on arrival patient was conscious with a finger stick of 60 and was given dextrose with improvement in metal status. 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 Cardio/Vascular: Yes: CAD, CHF, HTN Endocrine: Yes: Diabetes Mellitus - Alcohol/Substance Use Hx Alcohol Use: No - Smoking History Smoking history: Never smoked Have you smoked in the past 12 months: No Home Medications - Allergies Allergies/Adverse Reactions: Allergies Allergy/AdvReac Type Severity Reaction Status Date / Time No Known Allergies Allergy Verified 01/28/17 19:09 - Home Medications Home Medications: Ambulatory Orders Albuterol Sulfate Inhaler - [Ventolin Hfa Inhaler -] 2 inh PO Q4H 01/28/17 Aspirin [ASA -] 81 mg PO DAILY 01/28/17 Atorvastatin [place] [Lipitor] 20 mg PO HS 01/28/17 Clopidogrel Bisulfate [Plavix -] 75 mg PO DAILY 01/28/17 Digoxin [Lanoxin -] 0.25 mg PO DAILY 01/28/17 Donepezil HCl [Aricept -] 10 mg PO HS 01/28/17 Gabapentin [Neurontin -] 300 mg PO Q8H 01/28/17 Glipizide [Glipizide ER] 10 mg PO DAILY 01/28/17 Insulin Lispro [Humalog] 0 unit SQ TID 01/28/17 Metformin HCl [Metformin HCl ER] 1,000 mg PO DAILY 01/28/17 Metoprolol Tartrate [Lopressor -] 12.5 mg PO DAILY 01/28/17 Pantoprazole Sodium [Protonix] 20 mg PO DAILY 01/28/17 Tiotropium [place] [Spiriva] 1 inh PO DAILY 01/28/17 Trazodone HCl [Desyrel -] 150 mg PO HS 01/28/17 Zolpidem Tartrate [Ambien] 5 mg PO HS 01/28/17 Review of Systems - Review of Systems Constitutional: reports: No Symptoms Eyes: reports: No Symptoms HENT: reports: No Symptoms Neck: reports: No Symptoms Cardiovascular: reports: No Symptoms, Chest Pain, Shortness of Breath Gastrointestinal: reports: No Symptoms Genitourinary: reports: No Symptoms Breasts: reports: No Symptoms Reported Musculoskeletal: reports: No Symptoms Integumentary: reports: No Symptoms Neurological: reports: No Symptoms Endocrine: reports: No Symptoms Hematology/Lymphatic: reports: No Symptoms Psychiatric: reports: No Symptoms Vital Signs: Vital Signs Temperature 97.7 F 01/29/17 07:32 Pulse Rate 59 L 01/29/17 09:49 Respiratory Rate 20 01/29/17 07:35 Blood Pressure 163/78 01/29/17 07:32 O2 Sat by Pulse Oximetry (%) 100 01/29/17 07:35 Constitutional: Yes: Well Nourished, No Distress, Calm Eyes: Yes: WNL, Conjunctiva Clear, EOM Intact HENT: Yes: WNL, Atraumatic, Normocephalic Neck: Yes: WNL, Supple, Trachea Midline Respiratory: Yes: WNL, Regular, CTA Bilaterally Gastrointestinal: Yes: WNL, Normal Bowel Sounds Renal/: Yes: WNL Cardiovascular: Yes: WNL, Regular Rate and Rhythm Musculoskeletal: Yes: WNL Extremities: Yes: WNL Integumentary: Yes: WNL Neurological: Yes: WNL, Alert, Oriented ...Motor Strength: WNL Psychiatric: Yes: WNL, Alert, Oriented - Other Data Labs, Other Data: CBC, BMP 01/29/17 05:35 01/29/17 05:35 INR, PTT INR 1.12 (0.82-1.09) 01/29/17 05:35 Troponin, BNP 01/29/17 01/29/1717 01:30 01:30 05:35 Troponin I 0.45 H B-Natriuretic Peptide 6028.26 H 6604.79 H Troponin, BNP 01/29/17 01/29/17 01/29/17 01:30 01:30 05:35 Troponin I 0.45 H B-Natriuretic Peptide 6028.26 H 6604.79 H Imaging - Results Chest X-ray: Image Reviewed (no i/e) EKG: Image Reviewed (s cherri LDEA) Problem List - Problems (1) NSTEMI (non-ST elevated myocardial infarction) Code(s): I21.4 - NON-ST ELEVATION (NSTEMI) MYOCARDIAL INFARCTION Assessment/Plan chf systolic cad s/p cabg poor informant due to dementia dm anemia cri mildly elevated tni's? ischemia/cmp/cri Plan IV lasix Imdur 30 qd for bp/chf control may add hydralazine if needed monitor bun/ce d/c digoxon bp control telemetry r/o LA
--- NOTE | 2017-01-29 10:52 | CON.CARD ---
Consult - History of Present Illness History of Present Illness: Patient is a 71 year old female with h/o HLD, htn, DM type II, CAD, dementia, Vit B12, SOB, major depressive disorder, CAGB, RBKA, who lives in The [facility] for c/o chest pain. Patient is a poor historian due to dementia, but c/o chest pain, which she thinks she has had since last night. States the pain is like a intermittent pressure 8/10 which makes her sob when the pain come. States she had some dizziness with the symptoms states " it does not let me hold my head up". Today she used her MDI and was feeling better. She was in the hospital about 2 weeks ago. She thinks is was [place] but she is not sure. Denies any bleeding GI, brain or ENT. Per EMS got a call for unconscious but on arrival patient was conscious with a finger stick of 60 and was given dextrose with improvement in metal status. - Past Medical History Cardio/Vascular: Yes: CAD, CHF, HTN Endocrine: Yes: Diabetes Mellitus - Alcohol/Substance Use Hx Alcohol Use: No - Smoking History Smoking history: Never smoked Have you smoked in the past 12 months: No Home Medications - Allergies Allergies/Adverse Reactions: Allergies Allergy/AdvReac Type Severity Reaction Status Date / Time No Known Allergies Allergy Verified 01/28/17 19:09 - Home Medications Home Medications: Ambulatory Orders Albuterol Sulfate Inhaler - [Ventolin Hfa Inhaler -] 2 inh PO Q4H 01/28/17 Aspirin [ASA -] 81 mg PO DAILY 01/28/17 Atorvastatin Ca [Lipitor] 20 mg PO HS 01/28/17 Clopidogrel Bisulfate [Plavix -] 75 mg PO DAILY 01/28/17 Digoxin [Lanoxin -] 0.25 mg PO DAILY 01/28/17 Donepezil HCl [Aricept -] 10 mg PO HS 01/28/17 Gabapentin [Neurontin -] 300 mg PO Q8H 01/28/17 Glipizide [Glipizide ER] 10 mg PO DAILY 01/28/17 Insulin Lispro [Humalog] 0 unit SQ TID 01/28/17 Metformin HCl [Metformin HCl ER] 1,000 mg PO DAILY 01/28/17 Metoprolol Tartrate [Lopressor -] 12.5 mg PO DAILY 01/28/17 Pantoprazole Sodium [Protonix] 20 mg PO DAILY 01/28/17 Tiotropium [place] [Spiriva] 1 inh PO DAILY 01/28/17 Trazodone HCl [Desyrel -] 150 mg PO HS 01/28/17 Zolpidem Tartrate [Ambien] 5 mg PO HS 01/28/17 Vital Signs: Vital Signs Temperature 97.7 F 01/29/17 07:32 Pulse Rate 59 L 01/29/17 09:49 Respiratory Rate 20 01/29/17 07:35 Blood Pressure 163/78 01/29/17 07:32 O2 Sat by Pulse Oximetry (%) 100 01/29/17 07:35 - Other Data Labs, Other Data: CBC, BMP 01/29/17 05:35 01/29/17 05:35 INR, PTT INR 1.12 (0.82-1.09) 01/29/17 05:35 Troponin, BNP 01/29/17 01/29/17 01/29/17 01:30 01:30 05:35 Troponin I 0.45 H B-Natriuretic Peptide 6028.26 H 6604.79 H Troponin, BNP 01/29/17 01/29/17 01/29/17 01:30 01:30 05:35 Troponin I 0.45 H B-Natriuretic Peptide 6028.26 H 6604.79 H Problem List - Problems (1) NSTEMI (non-ST elevated myocardial infarction) Code(s): I21.4 - NON-ST ELEVATION (NSTEMI) MYOCARDIAL INFARCTION
[2017-01-29] MEDS: FUROSEMIDE 40 MG/4 ML INJECTABLE VIAL IVPB SCH (11:48)
[2017-01-29] MEDS: ISOSORBIDE MONONITRATE 30 MG TAB.SR.24H (FP) PO SCH (11:49)
[2017-01-29 11:50] LABS: DIGOXIN LEVEL 1.9984 ng/ml (0.8-2.0)
[2017-01-29 13:51] LABS: MAGNESIUM 1.9 mg/dL (1.8-2.4)
[2017-01-29 13:53] LABS: TROPONIN I 0.29 ng/ml (0.00-0.05)
--- NOTE | 2017-01-29 19:09 | PN ---
Physical Exam: SUBJECTIVE: Patient seen and examined at bedside. Patient looks fatigued, but complains of no SOB, no CP, no fevers, no chills. Explained to patient about CHF and NSTEMI. OBJECTIVE: Vital Signs Period Temp Pulse Resp BP Sys/Hobson Pulse Ox Last 24 Hr 97.7 F-99.1 F 53-59 18-20 129-182/65-78 100-100 GENERAL: The patient is awake, alert, oriented to person, place, month, in no acute distress. EYES: PERRL, extraocular movements intact LUNGS: Breath sounds equal, clear to auscultation bilaterally, no wheezes, no crackles, no accessory muscle use HEART: Regular rate and rhythm, S1, S2 without murmur, rub or gallop. ABDOMEN: Soft, nontender, nondistended, normoactive bowel sounds EXTREMITIES: 2+ pulses, warm, well-perfused, no edema. NEUROLOGICAL: Cranial nerves II through XII grossly intact. Normal speech, gait not observed. Laboratory Results - last 24 hr 01/29/17 01/29/17 01/29/17 01:30 01:30 01:30 WBC RBC Hgb Hct MCV MCH MCHC RDW Plt Count MPV Retic Count INR PTT (Actin FS) 83.5 H Sodium Potassium Chloride Carbon Dioxide Anion Gap BUN Creatinine POC Glucometer Random Glucose Hemoglobin A1c % Calcium Magnesium Transferrin Ferritin Troponin I 0.45 H B-Natriuretic Peptide 6028.26 H Triglycerides Cholesterol Total LDL Cholesterol HDL Cholesterol Vitamin B12 Serum Folate TSH Digoxin Blood Type Antibody Screen 01/29/17 01/29/17 01/29/17 01:30 05:35 05:35 WBC 8.7 RBC 3.36 L Hgb 10.1 L D Hct 30.1 L D MCV 89.7 MCH 30.1 MCHC 33.5 RDW 13.5 Plt Count 382 MPV 7.2 L Retic Count INR 1.12 PTT (Actin FS) 58.1 H D Sodium Potassium Chloride Carbon Dioxide Anion Gap BUN Creatinine POC Glucometer Random Glucose 87 Hemoglobin A1c % Calcium Magnesium Transferrin Ferritin Troponin I B-Natriuretic Peptide Triglycerides Cholesterol Total LDL Cholesterol HDL Cholesterol Vitamin B12 Serum Folate TSH Digoxin Blood Type Antibody Screen 01/29/17 01/29/17 01/29/17 05:35 05:35 05:35 WBC RBC Hgb Hct MCV MCH MCHC RDW Plt Count MPV Retic Count 1.56 H INR PTT (Actin FS) Sodium 142 Potassium 4.1 Chloride 105 Carbon Dioxide 26 Anion Gap 11 BUN 17 Creatinine 1.5 H POC Glucometer Random Glucose 92 Hemoglobin A1c % 7.2 H Calcium 9.4 Magnesium Transferrin Ferritin 99.140 Troponin I B-Natriuretic Peptide 6604.79 H Triglycerides 127 Cholesterol 130 Total LDL Cholesterol 66 HDL Cholesterol 52 Vitamin B12 364 Serum Folate 5 TSH 1.28 Digoxin 1.9984 Blood Type Antibody Screen 01/29/17 01/29/17 01/29/17 05:35 05:35 05:35 WBC RBC Hgb Hct MCV MCH MCHC RDW Plt Count MPV Retic Count INR PTT (Actin FS) Sodium Potassium Chloride Carbon Dioxide Anion Gap BUN Creatinine POC Glucometer Random Glucose Hemoglobin A1c % Calcium Magnesium Transferrin Cancelled Ferritin Cancelled Troponin I B-Natriuretic Peptide Triglycerides Cholesterol Total LDL Cholesterol HDL Cholesterol Vitamin B12 Cancelled Serum Folate TSH Digoxin Blood Type O POSITIVE Antibody Screen Negative 01/29/17 01/29/17 01/29/17 06:25 09:54 12:45 WBC RBC Hgb Hct MCV MCH MCHC RDW Plt Count MPV Retic Count INR PTT (Actin FS) Sodium Potassium Chloride Carbon Dioxide Anion Gap BUN Creatinine POC Glucometer 182 134 Random Glucose Hemoglobin A1c % Calcium Magnesium 1.9 Transferrin Ferritin Troponin I 0.29 H B-Natriuretic Peptide Triglycerides Cholesterol Total LDL Cholesterol HDL Cholesterol Vitamin B12 Serum Folate TSH Digoxin Blood Type Antibody Screen 01/29/17 01/29/17 12:45 13:54 WBC RBC Hgb Hct MCV MCH MCHC RDW Plt Count MPV Retic Count INR PTT (Actin FS) Sodium Potassium Chloride Carbon Dioxide Anion Gap BUN Creatinine POC Glucometer 178 Random Glucose Hemoglobin A1c % Calcium Magnesium Cancelled Transferrin Ferritin Troponin I B-Natriuretic Peptide Triglycerides Cholesterol Total LDL Cholesterol HDL Cholesterol Vitamin B12 Serum Folate TSH Digoxin Blood Type Antibody Screen Active Medications Generic Name Dose Route Start Last Admin Trade Name Freq PRN Reason Stop Dose Admin Aclidinium [place] 1 puff 01/29/17 10:00 01/29/17 09:49 Tudorza - IH 1 puff BID OG Administration Albuterol/Ipratropium 1 amp 01/29/17 01:24 Duoneb - NEB Q6H PRN SHORTNESS OF BREATH Atorvastatin Calcium 80 mg 01/29/17 22:00 Lipitor - PO HS OG Clopidogrel Bisulfate 75 mg 01/29/17 10:00 01/29/17 09:50 Plavix - PO 75 mg DAILY OG Administration Donepezil HCl 10 mg 01/29/17 22:00 Aricept - PO HS OG Furosemide 20 mg 01/29/17 10:00 01/29/17 11:48 Lasix Injection - IVPB Not Given DAILY [facility] Gabapentin 300 mg 01/29/17 06:00 01/29/17 13:54 Neurontin - PO 300 mg TID OG Administration Heparin Sodium (Porcine) 5,000 unit 01/29/17 01:30 Heparin - IVPUSH PRN PRN Heparin Sodium (Porcine) 1,000 unit 01/29/17 01:30 Heparin - IVPUSH PRN PRN Heparin Sodium/Dextrose 500 mls @ 16 mls/hr 01/28/17 21:00 01/29/17 03:14 Heparin Infusion - IVPB 750 units/hr TITR [facility] Titration Protocol 800 UNITS/HR Insulin Aspart 1 vial 01/29/17 01:17 01/29/17 16:19 Novolog Vial Sliding Scale - SQ Not Given Q4H [facility] Protocol Isosorbide Mononitrate 30 mg 01/29/17 11:15 01/29/17 11:49 Imdur - PO 30 mg DAILY OG Administration Metoprolol Tartrate 12.5 mg 01/29/17 10:00 01/29/17 09:50 Lopressor - PO 12.5 mg DAILY OG Administration Morphine Sulfate 1 mg 01/29/17 00:37 01/29/17 11:46 Morphine Injection - IVPUSH 1 mg Q4H PRN Administration PAIN Senna 2 tab 01/29/17 22:00 Senna - PO HS [facility] Trazodone HCl 150 mg 01/29/17 22:00 Desyrel - PO HS [facility] Echo: Mild MR, LV mildly dilated, LV systolic function mild to moderately reduced, normal RV, trace TR ASSESSMENT/PLAN: Patient is a 71yo female w/ PMHx of HTN, HLD, DM2, CAD s/p CABG, CHF, COPD, MDD who presented from [facility] with worsening CP and SOB, admitted for NSTEMi # NSTEMI - On admission patient had mildly elevated troponins (0.44, 0.45, 0.29) and EKG showing T wave abnormalities - Talk to supervisor molding about mildly elevated troponins, caused by Acute CHF? NSTEMI? - Patient given ASA 325mg loading , Plavix 300mg loading, Statin 80mg, Heparin drip, Morphine 1mg IVP for pain - Continue ASA 81mg QD + Plavix 75mg QD + 80mg QD + admit to tele - Normal lipid panel, Echo shows chronic CHF changes # Acute on Chronic Systolic CHF - EF 36.9% (from Echo 01/29/17) - Chest X-ray revealed mild congestion, high BNP, clinical exam shows normovolemic - Patients BP has been elevated since admission, however unsure of baseline, high BP could have contributed to sx - Cardiology consult Dr. Guillory started IV Lasix 20mg IVPB, started Imdur ( nitrate) 30QD for BP and CHF control, recommend adding hydralazine if needed. - Cardiology dc'ed digoxin # Bradycardia - Unknown baseline - Possibly due to medications, TSH is normal, monitor - Will call [employer] ([phone]) and get baseline HR # YUN on Possible CKD - Patient has Cr of 1.5, unsure of baseline - Will call [employer] ([phone]) and get baseline Cr - Will hold nephrotoxic medications # HTN - moderately controlled - Continue Lopressor home dosage 12.5mg daily but hold if heart rate <60 and SBP <100 - Continue Metoprolol 12.5mg PO QD - Cardio recommends adding hydralazine if needed - Will call [employer] ([phone]) and get baseline BP #Normocytic Anemia - Hgb 8.4, Hct 25 on admission - resolved to 10.1 / 30.1 - Iron studies ordered - Pending #DM2 - A1C 7.2 (01/29/17) - Continue BGM, Patient is on Sliding Scale insulin - Was on Metformin at home (hold because of YUN) - Was on Glipizide at home (held because of YUN) # History of HLD - controlled - Continue Atorvastatin 80mg daily - Normal lipid panel # COPD - Home med was Spirica (Tiotropium [place]) but now on Tudorza (Aclidinium [place]) - Continue 02 2L NC - Continue duonebs PRN # Major Depressive Disorder - Continue home medication Trazodone # Dementia - Continue Home medication Aricept - Will call [employer] ([phone]) and get baseline mental status # Prophylaxis - DVT Px - Patient on heparin - GI Px - not indicated # Disposition -Admit to telemetry. Cardio on board # Code Status - Full Code Visit type - Emergency Visit Emergency Visit: No - New Patient This patient is new to me today: No - Critical Care Critical Care patient: No
--- NOTE | 2017-01-29 19:25 | PN ---
Teaching Attending Note Name of Resident: Brittnee Raymundo ATTENDING PHYSICIAN STATEMENT I saw and evaluated the patient. I reviewed the resident's note and discussed the case with the resident. I agree with the resident's findings and plan as documented. SUBJECTIVE: Patient is c/o having leg cramps and came in with chest pain s/p Cabg and stents. OBJECTIVE: Vital Signs Temperature 98.5 F 01/29/17 18:00 Pulse Rate 49 L 01/29/17 18:00 Respiratory Rate 19 01/29/17 18:00 Blood Pressure 137/61 01/29/17 18:00 O2 Sat by Pulse Oximetry (%) 100 01/29/17 07:35 CBCD WBC 8.7 K/mm3 (4.0-10.0) 01/29/17 05:35 RBC 3.36 M/mm3 (3.60-5.2) L 01/29/17 05:35 Hgb 10.1 GM/dL (10.7-15.3) L D 01/29/17 05:35 Hct 30.1 % (32.4-45.2) L D 01/29/17 05:35 MCV 89.7 fl (80-96) 01/29/17 05:35 MCHC 33.5 g/dl (32.0-36.0) 01/29/17 05:35 RDW 13.5 % (11.6-15.6) 01/29/17 05:35 Plt Count 382 K/MM3 (134-434) 01/29/17 05:35 MPV 7.2 fl (7.5-11.1) L 01/29/17 05:35 CMP Sodium 142 mmol/L (136-145) 01/29/17 05:35 Potassium 4.1 mmol/L (3.5-5.1) 01/29/17 05:35 Chloride 105 mmol/L (98-107) 01/29/17 05:35 Carbon Dioxide 26 mmol/L (21-32) 01/29/17 05:35 Anion Gap 11 (8-16) 01/29/17 05:35 BUN 17 mg/dL (7-18) 01/29/17 05:35 Creatinine 1.5 mg/dL (0.55-1.02) H 01/29/17 05:35 Creat Clearance w eGFR 31.87 (>60) 01/28/17 19:28 Random Glucose 92 mg/dL (74-106) 01/29/17 05:35 Calcium 9.4 mg/dL (8.5-10.1) 01/29/17 05:35 Total Bilirubin 0.3 mg/dL (0.2-1.0) 01/28/17 19:28 AST 14 U/L (15-37) L 01/28/17 19:28 ALT 20 U/L (12-78) 01/28/17 19:28 Alkaline Phosphatase 69 U/L (45-117) 01/28/17 19:28 Total Protein 6.4 g/dl (6.4-8.2) 01/28/17 19:28 Albumin 3.4 g/dl (3.4-5.0) 01/28/17 19:28 CARDIAC ENZYMES Creatine Kinase 96 IU/L (26-192) 01/28/17 19:28 Troponin I 0.29 ng/ml (0.00-0.05) H 01/29/17 12:45 Current Medications Generic Name Dose Route Start Last Admin Trade Name Freq PRN Reason Stop Dose Admin Aclidinium [place] 1 puff 01/29/17 10:00 01/29/17 09:49 Tudorza - IH 1 puff BID OG Administration Albuterol/Ipratropium 1 amp 01/29/17 01:24 Duoneb - NEB Q6H PRN SHORTNESS OF BREATH Atorvastatin Calcium 80 mg 01/29/17 22:00 Lipitor - PO HS OG Clopidogrel Bisulfate 75 mg 01/29/17 10:00 01/29/17 09:50 Plavix - PO 75 mg DAILY OG Administration Donepezil HCl 10 mg 01/29/17 22:00 Aricept - PO HS OG Furosemide 20 mg 01/29/17 10:00 01/29/17 11:48 Lasix Injection - IVPB Not Given DAILY OG Gabapentin 300 mg 01/29/17 06:00 01/29/17 13:54 Neurontin - PO 300 mg TID OG Administration Heparin Sodium (Porcine) 5,000 unit 01/29/17 01:30 Heparin - IVPUSH PRN PRN Heparin Sodium (Porcine) 1,000 unit 01/29/17 01:30 Heparin - IVPUSH PRN PRN Heparin Sodium/Dextrose 500 mls @ 16 mls/hr 01/28/17 21:00 01/29/17 03:14 Heparin Infusion - IVPB 750 units/hr TITR [facility] Titration Protocol 800 UNITS/HR Insulin Aspart 1 vial 01/29/17 01:17 01/29/17 16:19 Novolog Vial Sliding Scale - SQ Not Given Q4H [facility] Protocol Isosorbide Mononitrate 30 mg 01/29/17 11:15 01/29/17 11:49 Imdur - PO 30 mg DAILY OG Administration Metoprolol Tartrate 12.5 mg 01/29/17 10:00 01/29/17 09:50 Lopressor - PO 12.5 mg DAILY [facility] Administration Morphine Sulfate 1 mg 01/29/17 00:37 01/29/17 11:46 Morphine Injection - IVPUSH 1 mg Q4H PRN Administration PAIN Senna 2 tab 01/29/17 22:00 Senna - PO [facility] Trazodone HCl 150 mg 01/29/17 22:00 Desyrel - PO [facility] Home Medications Medication Instructions Recorded Albuterol Sulfate Inhaler - 2 inh PO Q4H 01/28/17 [Ventolin Hfa Inhaler -] Aspirin [ASA -] 81 mg PO DAILY 01/28/17 Atorvastatin Ca [Lipitor] 20 mg PO HS 01/28/17 Clopidogrel Bisulfate [Plavix -] 75 mg PO DAILY 01/28/17 Digoxin [Lanoxin -] 0.25 mg PO DAILY 01/28/17 Donepezil HCl [Aricept -] 10 mg PO HS 01/28/17 Gabapentin [Neurontin -] 300 mg PO Q8H 01/28/17 Glipizide [Glipizide ER] 10 mg PO DAILY 01/28/17 Insulin Lispro [Humalog] 0 unit SQ TID 01/28/17 Metformin HCl [Metformin HCl ER] 1,000 mg PO DAILY 01/28/17 Metoprolol Tartrate [Lopressor -] 12.5 mg PO DAILY 01/28/17 Pantoprazole Sodium [Protonix] 20 mg PO DAILY 01/28/17 Tiotropium [place] [Spiriva] 1 inh PO DAILY 01/28/17 Trazodone HCl [Desyrel -] 150 mg PO HS 01/28/17 Zolpidem Tartrate [Ambien] 5 mg PO HS 01/28/17 PE: per resident's RLE: Below knee amputation. Has RLE prosthesis ASSESSMENT AND PLAN: Patient is a 71yo female w/ PMHx of HTN, HLD, DM2, CAD s/p CABG, CHF, COPD, MDD who presented from [facility] with worsening CP and SOB, admitted for NSTEMi # NSTEMI on IV Heparin, Cardio consult . ASpirin/plavix , trend troponin level # Acute on Chronic Systolic CHF - EF 36.9% (from Echo 01/29/17), On lasix and BB , continue # Bradycardia - Unknown baseline, on low dose BB continue for now Possibly due to medications, TSH is normal, monitor # YUN on Possible CKD # HTN - moderately controlled #Normocytic Anemia #DM2 - A1C 7.2 (01/29/17), sliding scale with coverage # History of HLD - continue lipitor # COPD continue meds. DVT PX: Heparin
[2017-01-29] MEDS: traZODone HCL 50 MG TABLET (FP) PO SCH (21:29)
[2017-01-29] MEDS: ATORVASTATIN CA 80 MG TABLET (FP) PO SCH (21:29)
[2017-01-29] MEDS: SENNOSIDES 8.6MG TABLET (FP) PO SCH (21:30)
[2017-01-29] MEDS: HEPARIN INFUSION - 500 ML IVPB SCH (21:30)
[2017-01-29] MEDS: DONEPEZIL HCL 10 MG TABLET (FP) PO SCH (21:32)
[2017-01-30] MEDS: GABAPENTIN 300 MG CAPSULE (FP) PO SCH ×3 (05:43→21:47)
[2017-01-30 06:09] LABS: SERUM IRON 45 ug/dL (27-139); TOTAL IRON BINDING CAPACITY 248 ug/dL (250-450); TRANSFERRIN 197 mg/dL (200-370); UIBC 203 ug/dL (118-369)
[2017-01-30] MEDS: HEPARIN INFUSION - 500 ML IVPB SCH ×2 (06:13→08:37)
[2017-01-30] MEDS: INSULIN SLIDING SCALE (NOVOLOG) 1 VIAL SQ SCH ×4 (06:21→21:48)
--- NOTE | 2017-01-30 07:45 | PN ---
Physical Exam: SUBJECTIVE: Patient seen and examined this AM. No CP, no SOB, no fevers, no chills, slept well this AM. No palpitations OBJECTIVE: Vital Signs Period Temp Pulse Resp BP Sys/Hobson Pulse Ox Last 24 Hr 97.7 F-99.1 F 49-59 18-20 129-141/61-68 100-100 GENERAL: The patient is awake, alert, oriented to person, place, month, in no acute distress. EYES: PERRL, extraocular movements intact LUNGS: Breath sounds equal, clear to auscultation bilaterally, no wheezes, no crackles, no accessory muscle use HEART: Regular rate and rhythm, S1, S2 without murmur, rub or gallop. ABDOMEN: Soft, nontender, nondistended, normoactive bowel sounds EXTREMITIES: 2+ pulses, warm, well-perfused, no edema. NEUROLOGICAL: Cranial nerves II through XII grossly intact. Normal speech, gait not observed. Laboratory Results - last 24 hr 01/29/17 01/29/17 01/29/17 05:35 05:35 05:35 Retic Count INR 1.12 PTT (Actin FS) 58.1 H D Sodium 142 Potassium 4.1 Chloride 105 Carbon Dioxide 26 Anion Gap 11 BUN 17 Creatinine 1.5 H POC Glucometer Random Glucose 92 Hemoglobin A1c % 7.2 H Calcium 9.4 Magnesium Iron TIBC Iron Saturation Transferrin Ferritin 99.140 Troponin I B-Natriuretic Peptide 6604.79 H Triglycerides 127 Cholesterol 130 Total LDL Cholesterol 66 HDL Cholesterol 52 Vitamin B12 364 Serum Folate 5 TSH 1.28 Digoxin 1.9984 Blood Type Antibody Screen 01/29/17 01/29/17 01/29/17 05:35 05:35 05:35 Retic Count 1.56 H INR PTT (Actin FS) Sodium Potassium Chloride Carbon Dioxide Anion Gap BUN Creatinine POC Glucometer Random Glucose Hemoglobin A1c % Calcium Magnesium Iron 45 TIBC 248 L Iron Saturation 18 Transferrin 197 L Ferritin Cancelled Troponin I B-Natriuretic Peptide Triglycerides Cholesterol Total LDL Cholesterol HDL Cholesterol Vitamin B12 Cancelled Serum Folate TSH Digoxin Blood Type Antibody Screen 01/29/17 01/29/17 01/29/17 05:35 05:35 09:54 Retic Count INR PTT (Actin FS) Sodium Potassium Chloride Carbon Dioxide Anion Gap BUN Creatinine POC Glucometer 134 Random Glucose Hemoglobin A1c % Calcium Magnesium Iron TIBC Iron Saturation Transferrin Cancelled Ferritin Troponin I B-Natriuretic Peptide Triglycerides Cholesterol Total LDL Cholesterol HDL Cholesterol Vitamin B12 Serum Folate TSH Digoxin Blood Type O POSITIVE Antibody Screen Negative 01/29/17 01/29/17 01/29/17 12:45 12:45 13:54 Retic Count INR PTT (Actin FS) Sodium Potassium Chloride Carbon Dioxide Anion Gap BUN Creatinine POC Glucometer 178 Random Glucose Hemoglobin A1c % Calcium Magnesium 1.9 Cancelled Iron TIBC Iron Saturation Transferrin Ferritin Troponin I 0.29 H B-Natriuretic Peptide Triglycerides Cholesterol Total LDL Cholesterol HDL Cholesterol Vitamin B12 Serum Folate TSH Digoxin Blood Type Antibody Screen 01/29/17 01/30/17 21:35 05:26 Retic Count INR PTT (Actin FS) Sodium Potassium Chloride Carbon Dioxide Anion Gap BUN Creatinine POC Glucometer 147 148 Random Glucose Hemoglobin A1c % Calcium Magnesium Iron TIBC Iron Saturation Transferrin Ferritin Troponin I B-Natriuretic Peptide Triglycerides Cholesterol Total LDL Cholesterol HDL Cholesterol Vitamin B12 Serum Folate TSH Digoxin Blood Type Antibody Screen Active Medications Generic Name Dose Route Start Last Admin Trade Name Freq PRN Reason Stop Dose Admin Aclidinium [place] 1 puff 01/29/17 10:00 01/29/17 21:37 Tudorza - IH 1 puff BID OG Administration Albuterol/Ipratropium 1 amp 01/29/17 01:24 Duoneb - NEB Q6H PRN SHORTNESS OF BREATH Atorvastatin Calcium 80 mg 01/29/17 22:00 01/29/17 21:29 Lipitor - PO 80 mg HS OG Administration Clopidogrel Bisulfate 75 mg 01/29/17 10:00 01/29/17 09:50 Plavix - PO 75 mg DAILY OG Administration Donepezil HCl 10 mg 01/29/17 22:00 01/29/17 21:32 Aricept - PO 10 mg HS OG Administration Furosemide 20 mg 01/29/17 10:00 01/29/17 11:48 Lasix Injection - IVPB Not Given DAILY OG Gabapentin 300 mg 01/29/17 06:00 01/30/17 05:43 Neurontin - PO 300 mg TID OG Administration Heparin Sodium (Porcine) 5,000 unit 01/29/17 01:30 Heparin - IVPUSH PRN PRN Heparin Sodium (Porcine) 1,000 unit 01/29/17 01:30 Heparin - IVPUSH PRN PRN Heparin Sodium/Dextrose 500 mls @ 16 mls/hr 01/28/17 21:00 01/30/17 06:13 Heparin Infusion - IVPB 15 mls/hr TITR OG Administration Protocol 800 UNITS/HR Insulin Aspart 1 vial 01/29/17 22:00 01/30/17 06:21 Novolog Vial Sliding Scale - SQ Not Given ACHS OG Protocol Isosorbide Mononitrate 30 mg 01/29/17 11:15 01/29/17 11:49 Imdur - PO 30 mg DAILY OG Administration Metoprolol Tartrate 12.5 mg 01/29/17 10:00 01/29/17 09:50 Lopressor - PO 12.5 mg DAILY OG Administration Morphine Sulfate 1 mg 01/29/17 00:37 01/29/17 11:46 Morphine Injection - IVPUSH 1 mg Q4H PRN Administration PAIN Senna 2 tab 01/29/17 22:00 01/29/17 21:30 Senna - PO 2 tab HS OG Administration Trazodone HCl 150 mg 01/29/17 22:00 01/29/17 21:29 Desyrel - PO 150 mg HS OG Administration IMAGING: Echo: Mild MR, LV mildly dilated, LV systolic function mild to moderately reduced, normal RV, trace TR ASSESSMENT/PLAN: Patient is a 71yo female w/ PMHx of HTN, HLD, DM2, CAD s/p CABG, CHF, COPD, MDD who presented from [facility] with worsening CP and SOB, admitted for NSTEMi # NSTEMI - On admission patient had mildly elevated troponins (0.44, 0.45, 0.29) and EKG showing T wave abnormalities - Talk to unscrambler about mildly elevated troponins, caused by Acute CHF? NSTEMI? - Patient given ASA 325mg loading , Plavix 300mg loading, Statin 80mg, Heparin drip, Morphine 1mg IVP for pain - Continue ASA 81mg QD + Plavix 75mg QD + 80mg QD + admit to tele - Normal lipid panel, Echo shows chronic CHF changes, will get Stress Test tomorrow # Acute on Chronic Systolic CHF - EF 36.9% (from Echo 01/29/17) - Chest X-ray revealed mild congestion, high BNP, clinical exam shows normovolemic - Patients BP has been elevated since admission, however unsure of baseline, high BP could have contributed to sx - Cardiology consult Dr. Guillory started IV Lasix 20mg IVPB, started Imdur ( nitrate) 30QD for BP and CHF control, recommend adding hydralazine if needed. - Cardiology dc'ed digoxin # Bradycardia - Unknown baseline - Possibly due to medications, TSH is normal, monitor # YUN on Possible CKD - Patient has Cr of 1.5, unsure of baseline - Will hold nephrotoxic medications # HTN - moderately controlled - Continue Lopressor home dosage 12.5mg daily but hold if heart rate <60 and SBP <100 - Changed Metoprolol 12.5mg PO QD Tartrate --> SUccinate - Cardio recommends adding hydralazine if needed #Normocytic Anemia - Hgb 8.4, Hct 25 on admission - resolved to 10..1 - Iron studies ordered - Pending #DM2 - A1C 7.2 (01/29/17) - Continue BGM, Patient is on Sliding Scale insulin - Was on Metformin at home (hold because of YUN) - Was on Glipizide at home (held because of YUN) # History of HLD - controlled - Continue Atorvastatin 80mg daily - Normal lipid panel # COPD - Home med was Spirica (Tiotropium [place]) but now on Tudorza (Aclidinium [place]) - Continue 02 2L NC - Continue duonebs PRN # Major Depressive Disorder - Continue home medication Trazodone # Dementia - Continue Home medication Aricept # Prophylaxis - DVT Px - Patient on heparin - GI Px - not indicated # Disposition - Tomorrow, will wait for stress test # Code Status - Full Code Visit type - Emergency Visit Emergency Visit: No - New Patient This patient is new to me today: No - Critical Care Critical Care patient: No
[2017-01-30 07:58] LABS: MCH 30.2 pg (25.7-33.7); MCHC 33.9 g/dl (32.0-36.0); MEAN CELL VOLUME 89.1 fl (80-96); MEAN PLT VOLUME 7.2 fl (7.5-11.1); PLATELET COUNT 353 K/MM3 (134-434); RDW 13.5 % (11.6-15.6); WHITE BLOOD COUNT 6.9 K/mm3 (4.0-10.0)
[2017-01-30 08:10] LABS: ANION GAP 9 (8-16); CALCIUM 9.2 mg/dL (8.5-10.1); CO2 29 mmol/L (21-32); GLUCOSE,RANDOM 147 mg/dL (74-106)
[2017-01-30 08:13] LABS: CREATININE 1.5 mg/dL (0.55-1.02)
[2017-01-30] MEDS: FUROSEMIDE 40 MG/4 ML INJECTABLE VIAL IVPB SCH (09:03)
[2017-01-30] MEDS: METOPROLOL TARTRATE 25 MG TABLET (FP) PO SCH (09:03)
[2017-01-30] MEDS: ISOSORBIDE MONONITRATE 30 MG TAB.SR.24H (FP) PO SCH (09:04)
[2017-01-30] MEDS: CLOPIDOGREL BISULFATE 75 MG TABLET (FP) PO SCH (09:04)
[2017-01-30] MEDS: ACLIDINIUM BROMIDE 400 MCG/INH AERO.POWD IH SCH ×2 (09:10→21:48)
[2017-01-30] MEDS ORDERED: POTASSIUM CHLORIDE TABS 20 MEQ TABLET.ER (FP) PO ONE (09:15)
--- NOTE | 2017-01-30 11:01 | PN ---
Progress Note, Physician Chief Complaint: Pt is alert; knows she is is [facility]; skeptical and suspicious initially. Denies chest pain or dyspnea. History of Present Illness: Patient is a 71 year old black female with h/o CABGH, HLD, htn, DM type II, CAD , dementia, Vit B12, SOB, major depressive disorder, RBKA, who lives in [facility] for c/o chest pain. Patient is a poor historian due to dementia, but c/o chest pain, which she thinks she has had since last night. States the pain is like a intermittent pressure 8/10 which makes her sob when the pain come. States she had some dizziness with the symptoms states " it does not let me hold my head up". Today she used her MDI and was feeling better. She was in the hospital about 2 weeks ago. She thinks is was [place] but she is not sure. Denies any bleeding GI, brain or ENT. Per EMS got a call for unconscious but on arrival patient was conscious with a finger stick of 60 and was given dextrose with improvement in metal status. - Current Medication List Current Medications: Active Medications Aclidinium [place] (Tudorza -) 1 puff IH BID [facility] Last Admin: 01/30/17 09:10 Dose: 1 puff Albuterol/Ipratropium (Duoneb -) 1 amp NEB Q6H PRN PRN Reason: SHORTNESS OF BREATH Atorvastatin Calcium (Lipitor -) 80 mg PO HS [facility] Last Admin: 01/29/17 21:29 Dose: 80 mg Clopidogrel Bisulfate (Plavix -) 75 mg PO DAILY [facility] Last Admin: 01/30/17 09:04 Dose: 75 mg Donepezil HCl (Aricept -) 10 mg PO HS [facility] Last Admin: 01/29/17 21:32 Dose: 10 mg Furosemide (Lasix Injection -) 20 mg IVPB DAILY [facility] Last Admin: 01/30/17 09:03 Dose: 20 mg Gabapentin (Neurontin -) 300 mg PO TID [facility] Last Admin: 01/30/17 05:43 Dose: 300 mg Insulin Aspart (Novolog Vial Sliding Scale -) 1 vial SQ ACHS [facility] PRN Reason: Protocol Last Admin: 01/30/17 06:21 Dose: Not Given Isosorbide Mononitrate (Imdur -) 30 mg PO DAILY [facility] Last Admin: 01/30/17 09:04 Dose: 30 mg Metoprolol Tartrate (Lopressor -) 12.5 mg PO DAILY [facility] Last Admin: 01/30/17 09:03 Dose: 12.5 mg Morphine Sulfate (Morphine Injection -) 1 mg IVPUSH Q4H PRN PRN Reason: PAIN Last Admin: 01/29/17 11:46 Dose: 1 mg Senna (Senna -) 2 tab PO [facility] Last Admin: 01/29/17 21:30 Dose: 2 tab Trazodone HCl (Desyrel -) 150 mg PO [facility] Last Admin: 01/29/17 21:29 Dose: 150 mg - Objective Vital Signs: Vital Signs Temperature 97.7 F 01/30/17 07:20 Pulse Rate 52 L 01/30/17 07:20 Respiratory Rate 18 01/30/17 07:25 Blood Pressure 139/66 01/30/17 07:20 O2 Sat by Pulse Oximetry (%) 100 01/30/17 07:25 Constitutional: Yes: Anxious Eyes: Yes: WNL HENT: Yes: WNL Neck: Yes: WNL Cardiovascular: Yes: Regular Rate and Rhythm Respiratory: Yes: Regular Gastrointestinal: Yes: Soft ...Rectal Exam: Yes: Deferred Genitourinary: No: Anuria Musculoskeletal: Yes: Other Extremities: Yes: Amputation (RBKA) Edema: No Peripheral Pulses WNL: Yes Neurological: Yes: Alert, Confusion Psychiatric: Yes: Other (hx dementia) Labs: CBC, BMP 01/30/17 05:35 01/30/17 05:35 INR, PTT INR 1.12 (0.82-1.09) 01/29/17 05:35 Abnormal Lab Results 01/29/17 01/29/17 01/29/17 05:35 05:35 12:45 RBC Hgb Hct MPV PTT (Actin FS) Creatinine 1.5 H Random Glucose TIBC 248 L Transferrin 197 L Troponin I 0.29 H B-Natriuretic Peptide 6604.79 H 01/30/17 01/30/17 01/30/17 05:35 05:35 05:35 RBC 3.12 L Hgb 9.4 L Hct 27.8 L MPV 7.2 L PTT (Actin FS) 72.7 H Creatinine 1.5 H Random Glucose 147 H D TIBC Transferrin Troponin I B-Natriuretic Peptide - ....Imaging EKG: Image Reviewed (NSR;) Problem List - Problems (1) COPD (chronic obstructive pulmonary disease) Assessment/Plan: Pt denies history of bronchial asthma. Tolerating beta blockers. Code(s): J44.9 - CHRONIC OBSTRUCTIVE PULMONARY DISEASE, UNSPECIFIED (2) Dementia Code(s): F03.90 - UNSPECIFIED DEMENTIA WITHOUT BEHAVIORAL DISTURBANCE (3) Hyperlipidemia Code(s): E78.5 - HYPERLIPIDEMIA, UNSPECIFIED (4) Hypertension Assessment/Plan: On metoprolol (change to succinate). On Imdur; add hydralazine (systolic CHF; HTN). Start ACEI or ARB if renl function stbbilizes, then f/u BUN/Cr and electrolytes. Code(s): I10 - ESSENTIAL (PRIMARY) HYPERTENSION (5) Major depression Code(s): F32.9 - MAJOR DEPRESSIVE DISORDER, SINGLE EPISODE, UNSPECIFIED (6) Systolic CHF Code(s): I50.20 - UNSPECIFIED SYSTOLIC (CONGESTIVE) HEART FAILURE (7) Acute coronary syndrome Assessment/Plan: Initial TNI 0.45-->0.29; CK WNL. Pt denies chest pain or dyspnea; difficult historian (though knows she had CABG and "stents all at once"). EKG: sinus bradycardia; inferolateral STT changes; IVCD. ECHO: mild-moderately reduced LVEF Right BKA. Plan: Continue ASA and clopidogrel; was on IV heparin x 2 days. Add hydralazine to Imdur for systolic CHF (problematic using ACEI or ARB due to renal insufficiency, but consider starting one of these agents if renal function is at baseline). Change metoprolol tartrate to succinate for 24 hour, once daily dosing. Total cholesterol 130; on atorvastatin 80 mg daily. Persantine stress MIBI (denies hx asthma; tolerating beta blockers). Code(s): I24.9 - ACUTE ISCHEMIC HEART DISEASE, UNSPECIFIED (8) Anemia Code(s): D64.9 - ANEMIA, UNSPECIFIED
[2017-01-30 11:02] LABS: URINE APPEARANCE CLEAR; URINE BILIRUBIN NEGATIVE (NEGATIVE); URINE BLOOD NEGATIVE (NEGATIVE); URINE COLOR LTYELLOW; URINE GLUCOSE (UA) NEGATIVE (NEGATIVE); URINE KETONE NEGATIVE (NEGATIVE); URINE LEUK ESTERASE NEGATIVE (NEGATIVE); URINE NITRITE NEGATIVE (NEGATIVE); URINE PROTEIN NEGATIVE (NEGATIVE); URINE UROBILINOGEN NEGATIVE E.U./dl (0.2-1.0)
--- NOTE | 2017-01-30 18:23 | PN ---
Teaching Attending Note Name of Resident: Brittnee Raymundo ATTENDING PHYSICIAN STATEMENT I saw and evaluated the patient. I reviewed the resident's note and discussed the case with the resident. I agree with the resident's findings and plan as documented. SUBJECTIVE: Comfortable wants to go back to rehab. No further chest pain, no shortness of breath. no nausea or vomiting. Vital Signs Temperature 98.4 F 01/30/17 14:00 Pulse Rate 55 L 01/30/17 14:00 Respiratory Rate 20 01/30/17 14:00 Blood Pressure 108/54 01/30/17 14:00 O2 Sat by Pulse Oximetry (%) 100 01/30/17 07:25 CBCD WBC 6.9 K/mm3 (4.0-10.0) 01/30/17 05:35 RBC 3.12 M/mm3 (3.60-5.2) L 01/30/17 05:35 Hgb 9.4 GM/dL (10.7-15.3) L 01/30/17 05:35 Hct 27.8 % (32.4-45.2) L 01/30/17 05:35 MCV 89.1 fl (80-96) 01/30/17 05:35 MCHC 33.9 g/dl (32.0-36.0) 01/30/17 05:35 RDW 13.5 % (11.6-15.6) 01/30/17 05:35 Plt Count 353 K/MM3 (134-434) 01/30/17 05:35 MPV 7.2 fl (7.5-11.1) L 01/30/17 05:35 CMP Sodium 140 mmol/L (136-145) 01/30/17 05:35 Potassium 3.7 mmol/L (3.5-5.1) 01/30/17 05:35 Chloride 102 mmol/L (98-107) 01/30/17 05:35 Carbon Dioxide 29 mmol/L (21-32) 01/30/17 05:35 Anion Gap 9 (8-16) 01/30/17 05:35 BUN 16 mg/dL (7-18) 01/30/17 05:35 Creatinine 1.5 mg/dL (0.55-1.02) H 01/30/17 05:35 Creat Clearance w eGFR 31.87 (>60) 01/28/17 19:28 Random Glucose 147 mg/dL (74-106) H D 01/30/17 05:35 Calcium 9.2 mg/dL (8.5-10.1) 01/30/17 05:35 Total Bilirubin 0.3 mg/dL (0.2-1.0) 01/28/17 19:28 AST 14 U/L (15-37) L 01/28/17 19:28 ALT 20 U/L (12-78) 01/28/17 19:28 Alkaline Phosphatase 69 U/L (45-117) 01/28/17 19:28 Total Protein 6.4 g/dl (6.4-8.2) 01/28/17 19:28 Albumin 3.4 g/dl (3.4-5.0) 01/28/17 19:28 CARDIAC ENZYMES Creatine Kinase 96 IU/L (26-192) 01/28/17 19:28 Troponin I 0.29 ng/ml (0.00-0.05) H 01/29/17 12:45 Current Medications Generic Name Dose Route Start Last Admin Trade Name Freq PRN Reason Stop Dose Admin Aclidinium [place] 1 puff 01/29/17 10:00 01/30/17 09:10 Tudorza - IH 1 puff BID OG Administration Albuterol/Ipratropium 1 amp 01/29/17 01:24 Duoneb - NEB Q6H PRN SHORTNESS OF BREATH Atorvastatin Calcium 80 mg 01/29/17 22:00 01/29/17 21:29 Lipitor - PO 80 mg HS OG Administration Clopidogrel Bisulfate 75 mg 01/29/17 10:00 01/30/17 09:04 Plavix - PO 75 mg DAILY OG Administration Donepezil HCl 10 mg 01/29/17 22:00 01/29/17 21:32 Aricept - PO 10 mg HS OG Administration Furosemide 20 mg 01/29/17 10:00 01/30/17 09:03 Lasix Injection - IVPB 20 mg DAILY OG Administration Gabapentin 300 mg 01/29/17 06:00 01/30/17 13:21 Neurontin - PO 300 mg TID OG Administration Insulin Aspart 1 vial 01/29/17 22:00 01/30/17 16:03 Novolog Vial Sliding Scale - SQ 2 unit ACHS OG Administration Protocol Isosorbide Mononitrate 30 mg 01/29/17 11:15 01/30/17 09:04 Imdur - PO 30 mg DAILY OG Administration Metoprolol Succinate 12.5 mg 01/31/17 10:00 Toprol Xl - PO DAILY OG Morphine Sulfate 1 mg 01/29/17 00:37 01/29/17 11:46 Morphine Injection - IVPUSH 1 mg Q4H PRN Administration PAIN Senna 2 tab 01/29/17 22:00 01/29/17 21:30 Senna - PO 2 tab HS OG Administration Trazodone HCl 150 mg 01/29/17 22:00 01/29/17 21:29 Desyrel - PO 150 mg HS OG Administration Home Medications Medication Instructions Recorded Albuterol Sulfate Inhaler - 2 inh PO Q4H 01/28/17 [Ventolin HFA Inhaler -] Aspirin [ASA -] 81 mg PO DAILY 01/28/17 Atorvastatin Ca [Lipitor] 20 mg PO HS 01/28/17 Clopidogrel Bisulfate [Plavix -] 75 mg PO DAILY 01/28/17 Digoxin [Lanoxin -] 0.25 mg PO DAILY 01/28/17 Donepezil HCl [Aricept -] 10 mg PO HS 01/28/17 Gabapentin [Neurontin -] 300 mg PO Q8H 01/28/17 Glipizide [Glipizide ER] 10 mg PO DAILY 01/28/17 Insulin Lispro [Humalog] 0 unit SQ TID 01/28/17 Metformin HCl [Metformin HCl ER] 1,000 mg PO DAILY 01/28/17 Metoprolol Tartrate [Lopressor -] 12.5 mg PO DAILY 01/28/17 Pantoprazole Sodium [Protonix] 20 mg PO DAILY 01/28/17 Tiotropium [place] [Spiriva] 1 inh PO DAILY 01/28/17 Trazodone HCl [Desyrel -] 150 mg PO HS 01/28/17 Zolpidem Tartrate [Ambien] 5 mg PO HS 01/28/17 Furosemide [Lasix] 40 mg PO DAILY #15 tablet 01/30/17 Hydralazine HCl 10 mg PO BID #15 tablet 01/30/17 Isosorbide Mononitrate [Imdur -] 30 mg PO DAILY #7 tab.sr.24h 01/30/17 PE: per resident's RLE: Below knee amputation. Has RLE prosthesis ASSESSMENT AND PLAN: Patient is a 71yo female w/ PMHx of HTN, HLD, DM2, CAD s/p CABG, CHF, COPD, MDD who presented from [facility] with worsening CP and SOB, admitted for NSTEMi # NSTEMI on IV Heparin, Cardio consult . ASpirin/plavix , trop.0.45 -0.29 , patient is with hx of Cabg and stents , going for persantine stress test in am , discharge if negative. discussed with . # Acute on Chronic Systolic CHF - EF 36.9% (from Echo 01/29/17), On lasix and BB , continue # Bradycardia - Unknown baseline, on low dose BB on toprol xl 12.5mg , TSH is normal, # YUN on Possible CKD 07/08. , will start her on hydralazine 10mg po bid , instead of Heladio-i due to kidney function # HTN - moderately controlled #Normocytic Anemia #DM2 - A1C 7.2 (01/29/17), sliding scale with coverage # History of HLD - continue lipitor # COPD continue meds. DVT PX: Heparin Toprol Xl 12.5 Lasix, hydralzine imdur plavix aspirin discharge in am if persantine stress test is neg.
[2017-01-30] MEDS: SENNOSIDES 8.6MG TABLET (FP) PO SCH (21:47)
[2017-01-30] MEDS: traZODone HCL 50 MG TABLET (FP) PO SCH (21:47)
[2017-01-30] MEDS: DONEPEZIL HCL 10 MG TABLET (FP) PO SCH (21:47)
[2017-01-30] MEDS: ATORVASTATIN CA 80 MG TABLET (FP) PO SCH (21:47)
[2017-01-31] MEDS: INSULIN SLIDING SCALE (NOVOLOG) 1 VIAL SQ SCH ×4 (06:20→22:11)
[2017-01-31] MEDS: GABAPENTIN 300 MG CAPSULE (FP) PO SCH ×3 (06:50→22:05)
[2017-01-31 08:00] LABS: MCHC 33.5 g/dl (32.0-36.0); MEAN CELL VOLUME 89.6 fl (80-96); PLATELET COUNT 360 K/MM3 (134-434); RDW 13.9 % (11.6-15.6); WHITE BLOOD COUNT 6.2 K/mm3 (4.0-10.0)
--- NOTE | 2017-01-31 08:07 | PN ---
Physical Exam: SUBJECTIVE: Patient seen and examined this AM. Pt has no complaints of CP, no SOB, no fevers, no chills. Pt aware that she is getting a stress test today. OBJECTIVE: Vital Signs Period Temp Pulse Resp BP Sys/Hobson Pulse Ox Last 24 Hr 97.7 F-99.0 F 55-63 18-20 97-147/50-70 98 GENERAL: The patient is awake, alert, orientedx3, in no acute distress. EYES: R pupil is equal anreactive to light and accomoation. L pupil shows cataract changes, cloudy, vision decrease in L eye. Extraocular movements intact LUNGS: Breath sounds equal, clear to auscultation bilaterally, no wheezes, no crackles, no accessory muscle use HEART: Regular rate and rhythm, S1, S2 without murmur, rub or gallop. ABDOMEN: Soft, nontender, nondistended, normoactive bowel sounds EXTREMITIES: 2+ pulses, warm, well-perfused, no edema. S/p R BKA, stump is healthy, no erythema, no inflammed NEUROLOGICAL: No facial droop. Rest of Cranial nerves II through XII grossly intact. Muscular strength 5/5 in all extremities, Sensation equal and intact. Reflexes 2+. Normal speech, gait not observed. Patient uses a prosthetic to walk Laboratory Results - last 24 hr 01/30/17 01/30/17 01/30/17 05:35 05:35 05:35 WBC 6.9 RBC 3.12 L Hgb 9.4 L Hct 27.8 L MCV 89.1 MCH 30.2 MCHC 33.9 RDW 13.5 Plt Count 353 MPV 7.2 L PTT (Actin FS) 72.7 H Sodium 140 Potassium 3.7 Chloride 102 Carbon Dioxide 29 Anion Gap 9 BUN 16 Creatinine 1.5 H POC Glucometer Random Glucose 147 H D Calcium 9.2 Urine Color Urine Appearance Urine pH Ur Specific [place] Urine Protein Urine Glucose (UA) Urine Ketones Urine Blood Urine Nitrite Urine Bilirubin Urine Urobilinogen Ur Leukocyte Esterase 01/30/17 01/30/17 01/30/17 07:15 11:28 15:35 WBC RBC Hgb Hct MCV MCH MCHC RDW Plt Count MPV PTT (Actin FS) Sodium Potassium Chloride Carbon Dioxide Anion Gap BUN Creatinine POC Glucometer 178 164 Random Glucose Calcium Urine Color Ltyellow Urine Appearance Clear Urine pH 5.0 Ur Specific [place] 1.015 Urine Protein Negative Urine Glucose (UA) Negative Urine Ketones Negative Urine Blood Negative Urine Nitrite Negative Urine Bilirubin Negative Urine Urobilinogen Negative Ur Leukocyte Esterase Negative 01/30/17 01/31/17 21:46 05:14 WBC RBC Hgb Hct MCV MCH MCHC RDW Plt Count MPV PTT (Actin FS) Sodium Potassium Chloride Carbon Dioxide Anion Gap BUN Creatinine POC Glucometer 203 115 Random Glucose Calcium Urine Color Urine Appearance Urine pH Ur Specific [place] Urine Protein Urine Glucose (UA) Urine Ketones Urine Blood Urine Nitrite Urine Bilirubin Urine Urobilinogen Ur Leukocyte Esterase Active Medications Generic Name Dose Route Start Last Admin Trade Name Freq PRN Reason Stop Dose Admin Aclidinium [place] 1 puff 01/29/17 10:00 01/30/17 21:48 Tudorza - IH 1 puff BID OG Administration Albuterol/Ipratropium 1 amp 01/29/17 01:24 Duoneb - NEB Q6H PRN SHORTNESS OF BREATH Atorvastatin Calcium 80 mg 01/29/17 22:00 01/30/17 21:47 Lipitor - PO 80 mg HS OG Administration Clopidogrel Bisulfate 75 mg 01/29/17 10:00 01/30/17 09:04 Plavix - PO 75 mg DAILY OG Administration Donepezil HCl 10 mg 01/29/17 22:00 01/30/17 21:47 Aricept - PO 10 mg HS OG Administration Furosemide 20 mg 01/29/17 10:00 01/30/17 09:03 Lasix Injection - IVPB 20 mg DAILY OG Administration Gabapentin 300 mg 01/29/17 06:00 01/31/17 06:50 Neurontin - PO 300 mg TID OG Administration Insulin Aspart 1 vial 01/29/17 22:00 01/31/17 06:20 Novolog Vial Sliding Scale - SQ Not Given ACHS OG Protocol Isosorbide Mononitrate 30 mg 01/29/17 11:15 01/30/17 09:04 Imdur - PO 30 mg DAILY OG Administration Metoprolol Succinate 12.5 mg 01/31/17 10:00 Toprol Xl - PO DAILY OG Morphine Sulfate 1 mg 01/29/17 00:37 01/29/17 11:46 Morphine Injection - IVPUSH 1 mg Q4H PRN Administration PAIN Senna 2 tab 01/29/17 22:00 01/30/17 21:47 Senna - PO 2 tab HS OG Administration Trazodone HCl 150 mg 01/29/17 22:00 01/30/17 21:47 Desyrel - PO 150 mg HS OG Administration IMAGING: Echo: Mild MR, LV mildly dilated, LV systolic function mild to moderately reduced, normal RV, trace TR ASSESSMENT/PLAN: Patient is a 71yo female w/ PMHx of HTN, HLD, DM2, CAD s/p CABG, CHF, COPD, MDD who presented from [facility] with worsening CP and SOB, admitted for NSTEMi # NSTEMI - On admission patient had mildly elevated troponins (0.44, 0.45, 0.29) and EKG showing T wave abnormalities - Patient given ASA 325mg loading dose - continued on 81mg QD , received Plavix 300mg loading dose and continued on 75mg QD, Statin 80mg, Heparin drip, Morphine 1mg IVP for pain - Lipid panel was WNL, pt is on statin therapy - Stress test shows reversible perfusion defects, Dr. Guillory and Dr. Casanova aware. Pt will be transferred to [facility], obtained approval from Fletcher Mildred Galvan ([phone]) the Director of Guardianship for the procedure. Spoke to Janis Toledo ([phone]) Surgery Specialist for Family Services for approval as well. # Acute on Chronic Systolic CHF - EF 36.9% (from Echo 01/29/17) - Chest X-ray revealed mild congestion, high BNP, clinical exam shows patient is normovolemic - Patients BP has been elevated since admission (SBP 180s), baseline is 126/82 ( from [facility]), high BP could have contributed to sx - Cardiology consult Dr. Guillory who adjusted CHF and Bp meds - started IV Lasix 20mg IVPB, started Imdur (nitrate) 30QD, d/c'd digoxin, recommend adding hydralazine if needed. # Bradycardia - At baseline 62 (from [facility]) - Possibly due to beta cecil medications, TSH is normal - Continue to monitor # YUN on Possible CKD - baseline 0.97 (from [facility]) - Patient has Cr of 1.6 - Will hold nephrotoxic medications # HTN - well controlled now - Continue Lopressor home dosage 12.5mg daily but hold if heart rate <60 and SBP <100 - Continnue Metoprolol 12.5mg PO QD SUccinate - Cardio recommends adding hydralazine if needed # Normocytic Anemia - Hgb 8.4, Hct 25 on admission - resolved to 9.5 / 28.3 - Normal iron panel # DM2 - A1C 7.2 - Continue BGM, Patient is on Sliding Scale insulin - Was on Metformin at home (hold because of YUN) - Was on Glipizide at home (held because of YNU) # History of HLD - controlled - Continue Atorvastatin 80mg daily - Normal lipid panel # COPD - Home med was Spiriva (Tiotropium Rye) but now on Tudorza (Aclidinium Rye) - Continue 02 2L NC - Continue duonebs PRN # Major Depressive Disorder - Continue home medication Trazodone # Dementia - Continue Home medication Aricept # Prophylaxis - DVT Px - SCDS - GI Px - not indicated # Disposition - Pt to be transferred to [facility] Medical Care Administrator. Obtained consent from Guardians stated above. # Code Status - Full Code Visit type - Emergency Visit Emergency Visit: No - New Patient This patient is new to me today: No - Critical Care Critical Care patient: No - Discharge Referral Referred to [facility] Med P.C.: No
[2017-01-31] MEDS ORDERED: FUROSEMIDE 100 MG/10 ML INJECTABLE VIAL ONE (08:28)
[2017-01-31 08:31] LABS: ANION GAP 9 (8-16); CALCIUM 9.3 mg/dL (8.5-10.1); CO2 29 mmol/L (21-32); CREATININE 1.6 mg/dL (0.55-1.02); GLUCOSE,RANDOM 124 mg/dL (74-106)
[2017-01-31] MEDS ORDERED: METOPROLOL SUCCINATE 25 MG TAB.SR.24H (FP) PO SCH ×3 (10:00)
[2017-01-31] MEDS ORDERED: WATER IVPB ONE (10:00)
[2017-01-31] MEDS ORDERED: DIPYRIDAMOLE STRESS TEST IVPB ONE (10:00)
[2017-01-31] MEDS ORDERED: DEXTROSE 5% IVPB ONE (10:00)
[2017-01-31] MEDS ORDERED: AMINOPHYLLINE 250 MG/10 ML VIAL ONE (11:16)
[2017-01-31] MEDS: ISOSORBIDE MONONITRATE 30 MG TAB.SR.24H (FP) PO SCH (12:16)
[2017-01-31] MEDS: CLOPIDOGREL BISULFATE 75 MG TABLET (FP) PO SCH (12:16)
[2017-01-31] MEDS: FUROSEMIDE 40 MG/4 ML INJECTABLE VIAL IVPB SCH (12:17)
[2017-01-31] MEDS: ACLIDINIUM BROMIDE 400 MCG/INH AERO.POWD IH SCH ×2 (12:21→22:06)
--- NOTE | 2017-01-31 19:34 | PN ---
Teaching Attending Note Name of Resident: Brittnee Raymundo ATTENDING PHYSICIAN STATEMENT I saw and evaluated the patient. I reviewed the resident's note and discussed the case with the resident. I agree with the resident's findings and plan as documented. SUBJECTIVE: seen at 1 pm No cp or SOB . OBJECTIVE: NAD Cv : RRR, no JVD Lungs: CTAB ext : R BKA . LLE with no edema ASSESSMENT AND PLAN: 71 y/o lady with h/o HTN, DM , CAD, s/p CABG , COPD and other medical problems who presented with CP , she was found to have NSTEMI 1- NSTEMI: with large area of ischemia in anteriiolateral area on Stress test Echo with low EF and dilated LV EKG with ischemic changes in Laterl leads tele with 2 second pause - cont plavix and add ASA -cont torprol - cont lipitor - need cath . 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 - check renal US 4- HTN: cont meds 5- DM : SSI here dispo : HLOC , possible transfer for cath tomorrow
[2017-01-31] MEDS ORDERED: hydrALAZINE HCL 10 MG TABLET PO SCH (22:00)
[2017-01-31] MEDS: DONEPEZIL HCL 10 MG TABLET (FP) PO SCH (22:04)
[2017-01-31] MEDS: traZODone HCL 50 MG TABLET (FP) PO SCH (22:04)
[2017-01-31] MEDS: ATORVASTATIN CA 80 MG TABLET (FP) PO SCH (22:05)
[2017-01-31] MEDS: SENNOSIDES 8.6MG TABLET (FP) PO SCH (22:05)
[2017-02-01 02:09] VITALS: BP 130/60; PULSE 59; TEMP 98.6
[2017-02-01] MEDS: INSULIN SLIDING SCALE (NOVOLOG) 1 VIAL SQ SCH (06:41)
[2017-02-01] MEDS: GABAPENTIN 300 MG CAPSULE (FP) PO SCH (06:41)
[2017-02-01 07:49] LABS: MCH 29.9 pg (25.7-33.7); MCHC 33.3 g/dl (32.0-36.0); MEAN CELL VOLUME 89.7 fl (80-96); MEAN PLT VOLUME 7.1 fl (7.5-11.1); PLATELET COUNT 350 K/MM3 (134-434); RDW 13.7 % (11.6-15.6); WHITE BLOOD COUNT 7.6 K/mm3 (4.0-10.0)
--- NOTE | 2017-02-01 08:42 | PN ---
Physical Exam: SUBJECTIVE: Patient seen and examined this AM. Was walking to bathroom with prosthetic leg. States no CP, no SOB, no fevers, no chills, slept well last night. Informed patient that we spoke with her Guardians and they agreed to the procedure, giving verbal consent. Pt expressed understanding. Nurses state no acute events. Reviewed Tele, no alarming events besides bradycardia. OBJECTIVE: Vital Signs Period Temp Pulse Resp BP Sys/Hobson Pulse Ox Last 24 Hr 98.0 F-99.2 F 59-67 18-20 108-130/53-62 100 GENERAL: The patient is awake, alert, orientedx3, in no acute distress. EYES: R pupil is equal anreactive to light and accomoation. L pupil shows cataract changes, cloudy, vision decrease in L eye. Extraocular movements intact LUNGS: Breath sounds equal, clear to auscultation bilaterally, no wheezes, no crackles, no accessory muscle use HEART: Regular rate and rhythm, S1, S2 without murmur, rub or gallop. ABDOMEN: Soft, nontender, nondistended, normoactive bowel sounds EXTREMITIES: 2+ pulses, warm, well-perfused, no edema. S/p R BKA, stump is healthy, no erythema, no inflammed NEUROLOGICAL: No facial droop. Rest of Cranial nerves II through XII grossly intact. Muscular strength 5/5 in all extremities, Sensation equal and intact. Reflexes 2+. Normal speech, gait not observed. Patient uses a prosthetic to walk Laboratory Results - last 24 hr 01/31/17 01/31/17 01/31/17 05:48 12:11 15:45 WBC RBC Hgb Hct MCV MCH MCHC RDW Plt Count MPV PTT (Actin FS) 30.6 D POC Glucometer 172 188 01/31/17 02/01/17 02/01/17 22:11 05:45 05:45 WBC 7.6 RBC 3.07 L Hgb 9.2 L Hct 27.5 L MCV 89.7 MCH 29.9 MCHC 33.3 RDW 13.7 Plt Count 350 MPV 7.1 L PTT (Actin FS) 29.3 POC Glucometer 186 02/01/17 05:46 WBC RBC Hgb Hct MCV MCH MCHC RDW Plt Count MPV PTT (Actin FS) POC Glucometer 143 Active Medications Generic Name Dose Route Start Last Admin Trade Name Freq PRN Reason Stop Dose Admin Aclidinium [place] 1 puff 01/29/17 10:00 01/31/17 22:06 Tudorza - IH 1 puff BID OG Administration Albuterol/Ipratropium 1 amp 01/29/17 01:24 Duoneb - NEB Q6H PRN SHORTNESS OF BREATH Aspirin 81 mg 02/01/17 10:00 Ecotrin - PO DAILY OG Atorvastatin Calcium 80 mg 01/29/17 22:00 01/31/17 22:05 Lipitor - PO 80 mg HS OG Administration Clopidogrel Bisulfate 75 mg 01/29/17 10:00 01/31/17 12:16 Plavix - PO 75 mg DAILY OG Administration Donepezil HCl 10 mg 01/29/17 22:00 01/31/17 22:04 Aricept - PO 10 mg HS OG Administration Furosemide 20 mg 01/29/17 10:00 01/31/17 12:17 Lasix Injection - IVPB 20 mg DAILY OG Administration Gabapentin 300 mg 01/29/17 06:00 02/01/17 06:41 Neurontin - PO Not Given TID OG Hydralazine HCl 10 mg 01/31/17 22:00 01/31/17 22:04 Apresoline - PO 10 mg BID OG Administration Insulin Aspart 1 vial 01/29/17 22:00 02/01/17 06:41 Novolog Vial Sliding Scale - SQ Not Given ACHS [facility] Protocol Isosorbide Mononitrate 30 mg 01/29/17 11:15 01/31/17 12:16 Imdur - PO 30 mg DAILY OG Administration Metoprolol Succinate 12.5 mg 01/31/17 10:00 01/31/17 12:16 Toprol Xl - PO 12.5 mg DAILY OG Administration Senna 2 tab 01/29/17 22:00 01/31/17 22:05 Senna - PO 2 tab HS OG Administration Trazodone HCl 150 mg 01/29/17 22:00 01/31/17 22:04 Desyrel - PO 150 mg HS OG Administration ASSESSMENT/PLAN: IMAGING: Echo: Mild MR, LV mildly dilated, LV systolic function mild to moderately reduced, normal RV, trace TR ASSESSMENT/PLAN: Patient is a 71yo female w/ PMHx of HTN, HLD, DM2, CAD s/p CABG, CHF, COPD, MDD who presented from [facility] with worsening CP and SOB, admitted for NSTEMi # NSTEMI - On admission patient had mildly elevated troponins (0.44, 0.45, 0.29) and EKG showing T wave abnormalities - Patient given ASA 325mg loading dose - continued on 81mg QD , received Plavix 300mg loading dose and continued on 75mg QD, Statin 80mg, Heparin drip, Morphine 1mg IVP for pain - Lipid panel was WNL, pt is on statin therapy - Stress test shows reversible perfusion defects, Dr. Guillory and Dr. Casanova aware. Pt will be transferred to [facility], obtained approval from Fletcher Mildred Mandy ([phone]) the Director of Guardianship for the procedure. Spoke to Janis Toledo ([phone]) Roll Over Loader for Family Services for approval as well. # Acute on Chronic Systolic CHF - EF 36.9% (from Echo 01/29/17) - Chest X-ray revealed mild congestion, high BNP, clinical exam shows patient is normovolemic - Patients BP has been elevated since admission (SBP 180s), baseline is 126/82 ( from [facility]), high BP could have contributed to sx - Cardiology consult Dr. Guillory who adjusted CHF and Bp meds - started IV Lasix 20mg IVPB, started Imdur (nitrate) 30QD, d/c'd digoxin, recommend adding hydralazine if needed. # Bradycardia - At baseline 62 (from [facility]) - Possibly due to beta cecil medications, TSH is normal - Continue to monitor # YUN on Possible CKD - baseline 0.97 (from [facility]) - Patient has Cr of - Will hold nephrotoxic medications # HTN - well controlled now - Continue Lopressor home dosage 12.5mg daily but hold if heart rate <60 and SBP <100 - Continnue Metoprolol 12.5mg PO QD SUccinate - Cardio recommends adding hydralazine if needed # Normocytic Anemia - Hgb 8.4, Hct 25 on admission - resolved to - Normal iron panel # DM2 - A1C 7.2 - Continue BGM, Patient is on Sliding Scale insulin - Was on Metformin at home (hold because of YUN) - Was on Glipizide at home (held because of YUN) # History of HLD - controlled - Continue Atorvastatin 80mg daily - Normal lipid panel # COPD - Home med was Spiriva (Tiotropium [place]) but now on Tudorza (Aclidinium [place]) - Continue 02 2L NC - Continue duonebs PRN # Major Depressive Disorder - Continue home medication Trazodone # Dementia - Continue Home medication Aricept # Prophylaxis - DVT Px - SCDS - GI Px - not indicated # Disposition - Pt to be transferred to [facility] Crust Sorter today. Obtained consent from Guardians stated above. # Code Status - Full Code
[2017-02-01 09:46] LABS: ANION GAP 10 (8-16); CALCIUM 9.5 mg/dL (8.5-10.1); CO2 26 mmol/L (21-32); CREATININE 1.7 mg/dL (0.55-1.02); GLUCOSE,RANDOM 146 mg/dL (74-106)
[2017-02-01] MEDS ORDERED: ASPIRIN COATED 81 MG TABLET.EC PO SCH (10:00)
--- NOTE | 2017-02-01 14:23 | PN ---
Teaching Attending Note Name of Resident: Brittnee Raymundo ATTENDING PHYSICIAN STATEMENT I saw and evaluated the patient. I reviewed the resident's note and discussed the case with the resident. I agree with the resident's findings and plan as documented. SUBJECTIVE: no CP . OBJECTIVE: seen while being wheeled out for a transfer . looks well with NAD ASSESSMENT AND PLAN: 71 y/o lady with h/o HTN, DM , CAD, s/p CABG , COPD and other medical problems who presented with CP , she was found to have NSTEMI 1- NSTEMI: with large area of ischemia in anteriiolateral area on Stress test Echo with low EF and dilated LV - plavix, ASA, toprol, lipitor . 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 left before renal US was done 4- HTN: cont meds 5- DM : SSI as inpt dispo :Transferred to OSH for cath
--- NOTE | 2017-02-01 19:08 | DS ---
Physical Exam: SUBJECTIVE: Patient seen and examined this AM. Patient had no complaints. No chest pain, no shortness of breath. No fevers, no chills OBJECTIVE: Vital Signs Period Temp Pulse Resp BP Sys/Hobson Pulse Ox Last 24 Hr 98.6 F-99.2 F 59-62 20-20 108-130/55-60 100 PHYSICAL EXAM GENERAL: The patient is awake, alert, orientedx3, in no acute distress. EYES: R pupil is equal anreactive to light and accomoation. L pupil shows cataract changes, cloudy, vision decrease in L eye. Extraocular movements intact LUNGS: Breath sounds equal, clear to auscultation bilaterally, no wheezes, no crackles, no accessory muscle use HEART: Regular rate and rhythm, S1, S2 without murmur, rub or gallop. ABDOMEN: Soft, nontender, nondistended, normoactive bowel sounds EXTREMITIES: 2+ pulses, warm, well-perfused, no edema. S/p R BKA, stump is healthy, no erythema, no inflammed NEUROLOGICAL: No facial droop. Rest of Cranial nerves II through XII grossly intact. Muscular strength 5/5 in all extremities, Sensation equal and intact. Reflexes 2+. Normal speech, gait not observed. Patient uses a prosthetic to walk LABS Laboratory Results - last 24 hr 01/31/17 02/01/17 02/01/17 22:11 05:45 05:45 WBC 7.6 RBC 3.07 L Hgb 9.2 L Hct 27.5 L MCV 89.7 MCH 29.9 MCHC 33.3 RDW 13.7 Plt Count 350 MPV 7.1 L PTT (Actin FS) 29.3 Sodium Potassium Chloride Carbon Dioxide Anion Gap BUN Creatinine POC Glucometer 186 Random Glucose Calcium 02/01/17 02/01/17 05:45 05:46 WBC RBC Hgb Hct MCV MCH MCHC RDW Plt Count MPV PTT (Actin FS) Sodium 140 Potassium 4.1 Chloride 104 Carbon Dioxide 26 Anion Gap 10 BUN 20 H Creatinine 1.7 H POC Glucometer 143 Random Glucose 146 H Calcium 9.5 IMAGING: Echo: Mild MR, LV mildly dilated, LV systolic function mild to moderately reduced, normal RV, trace TR HOSPITAL COURSE: Date of Admission:01/28/17 Date of Discharge: 02/01/17 ASSESSMENT/PLAN: Patient Marline Easley is a 71yo female with a past medical history of dementia , hypertension, hyperlipidemia, diabetes, CAD s/p stents, congestive heart failure, COPD, and MDD. She presented from [facility] with worsening chest pain. # NSTEMI - On admission, the patient had mildly elevated troponins (0.44) and the EKG showed T wave abnormalities. The patient was given an Aspirin, Plavix, and Statin loading dose and a heparin drip. During the hospitalization the troponins decreased to 0.29, and the patient was given a stress test which shows reversible perfusion defects, Dr. Guillory and Dr. Casanova aware. Pt will be transferred to [facility] Cardiac Catheterization [facility], obtained approval from Mildred Mandy ([phone]) the Director of Guardianship for the procedure. Spoke to Janis Toledo ([phone]) Central Supply Nurse for Family Services for approval as well. # Acute on Chronic Systolic CHF - EF 36.9% (from Echo 01/29/17) - On admission the patient had congested lungs and a high BNP. We started furosemide (Lasix) 40mg PO Daily on the patient, and discontinued the patient's home digoxin, and the patient has been euvolemic throughout the hospitalization. # HTN - well controlled now - The patient's BP has been elevated since admission (SBP 180s), baseline is 126 /82. During the hospitalization we made the following medication changes: - We started Isosorbid Mononutrate (Imdur) 30mg PO Daily - We started Hydralazine 10mg PO BID - We changed Metoprolol Tartrate to Succinate 12.5mg PO Daily for 24 hour once daily dosing We continued all other home medications. Patient expressed understanding of her transfer. Minutes to complete discharge: 50 Discharge Summary Reason For Visit: NSTEMI Condition: Good - Instructions Diet, Activity, Other Instructions: NOTE TO PATIENT DARLINE MENDEZ: You came into the hospital because your blood pressure was high, and heart was not getting enough blood. We gave you some medications and managed your blood pressure and your congestive heart failure. You did a cardiac stress test during the hospitalization and it came back positive, meaning that you need to have a procedure called a Cardiac Cath to open the arteries that are narrow in your heart. You will need to be transferred to [facility] to obtain the procedure. The medical doctors spoke with . Mildred Galvan ([phone]), the Director of [facility] and Ms. Janis Toledo ([phone]) Central Supply Nurse for Family Services for approval and both of them verbalized consent. Please followup with your primary care provider and your carrot tier in one week If you have any severe symptoms like severe chest pain, or shortness of breath, please return to the ER NOTE TO PRIMARY CARE PHYSICIAN: During her hospitalization, we adjusted some of her medications to control her blood pressure and CHF 1. We started Furopsemide (Lasix) 40mg PO Daily 2. We started Isosorbid Mononutrate (Imdur) 30mg PO Daily 3. We started Hydralazine 10mg PO BID 4. We changed Metoprolol Tartrate to Succinate 12.5mg PO Daily for 24 hour once daily dosing 5. We discontinued her digoxin Please consider adding an ACEi or ARB when the renal function stabilizes Referrals: Kaylyn Peña MD [Primary Care Provider] - 1 Week Harish Guillory MD [Staff Physician] - 1 Week Disposition: TRANSFER ACUTE CARE/OTHER HOSP - Home Medications Comprehensive Discharge Medication List: Ambulatory Orders Albuterol Sulfate Inhaler - [Ventolin HFA Inhaler -] 2 inh PO Q4H 01/28/17 Aspirin [ASA -] 81 mg PO DAILY 01/28/17 Atorvastatin Ca [Lipitor] 20 mg PO HS 01/28/17 Clopidogrel Bisulfate [Plavix -] 75 mg PO DAILY 01/28/17 Donepezil HCl [Aricept -] 10 mg PO HS 01/28/17 Gabapentin [Neurontin -] 300 mg PO Q8H 01/28/17 Glipizide [Glipizide ER] 10 mg PO DAILY 01/28/17 Metformin HCl [Metformin HCl ER] 1,000 mg PO DAILY 01/28/17 Pantoprazole Sodium [Protonix] 20 mg PO DAILY 01/28/17 Tiotropium [place] [Spiriva] 1 inh PO DAILY 01/28/17 Trazodone HCl [Desyrel -] 150 mg PO HS 01/28/17 Zolpidem Tartrate [Ambien] 5 mg PO HS 01/28/17 Furosemide [Lasix] 40 mg PO DAILY #15 tablet 01/30/17 Hydralazine HCl 10 mg PO BID #15 tablet 01/30/17 Isosorbide Mononitrate [Imdur -] 30 mg PO DAILY #7 tab.sr.24h 01/30/17 Metoprolol Succinate [Toprol XL -] 12.5 mg PO DAILY #15 tab 02/01/17 This patient is new to me today: No Emergency Visit: No Critical Care patient: No - Discharge Referral Referred to [facility] No
== END 2017-02-01 09:11 | disposition short-term general hospital (02) | DRG 280 ==
LOC: JER 18:46 → JERBED 23:37 → UNDOADMIN 23:50 → J4W 01-29 00:58
PROVIDERS: ADMIT Internal Medicine; ATTEND Internal Medicine
DX: I21.4 Non-ST elevation (NSTEMI) myocardial infarction (principal); I50.23 Acute on chronic systolic (congestive) heart failure; N17.9 Acute kidney failure, unspecified; I13.0 Hypertensive heart and chronic kidney disease with heart failure and stage 1 through stage 4 chronic kidney disease, or unspecified chronic kidney disease; E78.5 Hyperlipidemia, unspecified; I25.10 Atherosclerotic heart disease of native coronary artery without angina pectoris; F03.90 Unspecified dementia, unspecified severity, without behavioral disturbance, psychotic disturbance, mood disturbance, and anxiety; F32.9 Major depressive disorder, single episode, unspecified; Z95.1 Presence of aortocoronary bypass graft; Z89.511 Acquired absence of right leg below knee; Z79.4 Long term (current) use of insulin; E53.8 Deficiency of other specified B group vitamins; R00.1 Bradycardia, unspecified; D63.8 Anemia in other chronic diseases classified elsewhere; J44.9 Chronic obstructive pulmonary disease, unspecified; E11.22 Type 2 diabetes mellitus with diabetic chronic kidney disease; I50.9 Heart failure, unspecified; E11.649 Type 2 diabetes mellitus with hypoglycemia without coma
CPT/HCPCS: 36415; 71010-TC; 78452-TC; 80048; 80053; 80061; 80162; 81003; 82272; 82550; 82607; 82728; 82746; 82947; 83036; 83540; 83550; 83721; 83735; 83880; 84443; 84466; 84484; 85025; 85027; 85044; 85610; 85730; 86850; 86900; 86901; 93005; 93010; 93017; 93306-TC; 93971-TC; 97116-GP; 97162-GP; 99285-25; A9502; J1644